=== PATIENT | female | born 1955 | race Caucasian/White ===

== ENCOUNTER → 2016-11-25 | Outpatient (CLI) | payer MEDICAID | END | disposition home or self-care (01) | LOC: LABWHC1 16:22 | PROVIDERS: ATTEND Internal Medicine Endocrinology, Diabetes & Metabolism | DX: E03.8 Other specified hypothyroidism (principal) | CPT/HCPCS: 36415; 84443 ==

== ENCOUNTER → 2016-12-08 | Outpatient (CLI) | payer MEDICAID ==
--- NOTE | 2016-12-08 11:55 | MM ---
Reason for exam: history of breast cancer, conservation therapy. Last mammogram was performed 6 months ago. History: Patient is postmenopausal and has history of breast cancer at age 56. Family history of breast cancer in cousin at age 55. Benign US breast aspiration single RT of the right breast, November 06, 2014. Malignant u/S right breast localization of the right breast, October 17, 2011. Lumpectomy of the right breast, October 17, 2011. Malignant US RT VAD breast biopsy of the right breast, October 05, 2011. Chemotherapy, 2011. Radiation therapy of the right breast, 2011. Benign core biopsy of the left breast, 1993. Took hormonal contraceptives for 3 years beginning at age 19. Taking other hormone for 8 years beginning at age 48. Physical Findings: Nurse did not find any significant physical abnormalities on exam. MG Diagnostic Mammo w CAD JOSE Bilateral CC and MLO view(s) were taken. Prior study comparison: November 06, 2014, right breast MG diagnostic mammo RT wo CAD. The breast tissue is heterogeneously dense. This may lower the sensitivity of mammography. Finding: Architectural distortion in the upper quadrant, posterior position of the right breast. There is no discrete abnormality. These results were verbally communicated with the patient and result sheet given to the patient on 12/08/16. ASSESSMENT: Benign, BI-RAD 2 RECOMMENDATION: Follow-up diagnostic mammogram of both breasts in 1 year.
== END | disposition home or self-care (01) ==
LOC: RADMAMWWP 10:02
PROVIDERS: ATTEND Family Medicine
DX: R92.8 Other abnormal and inconclusive findings on diagnostic imaging of breast (principal)

== ENCOUNTER → 2017-05-26 | Outpatient (CLI) | payer BC | END | disposition home or self-care (01) | LOC: LABWHC1 15:23 | PROVIDERS: ATTEND Internal Medicine Sleep Medicine | DX: E03.8 Other specified hypothyroidism (principal) | CPT/HCPCS: 36415; 84443 ==

== ENCOUNTER → 2017-08-18 | Outpatient (CLI) | payer BC ==
[2017-08-18 09:22] LABS: Basophils % (A) 0 %; CH 31.8; Eosinophils # (A) 0.1 k/uL (0-0.7); Eosinophils % (A) 1 %; HCT 41.1 % (34.0-46.0); HDW 3.06; HGB 13.9 gm/dL (11.4-16.0); Luc # (Auto) 0.08; Luc % (Auto) 2; Lymphocytes # (A) 0.8 k/uL (1.0-4.8); Lymphocytes % (A) 16 %; MCH 30.9 pg (25.0-35.0); MCHC 33.9 g/dL (31.0-37.0); MCV 91.2 fL (80.0-100.0); Mean Platelet Volume 7.5; Monocytes # (A) 0.2 k/uL (0-1.0); Monocytes % (A) 5 %; Neutrophils # (A) 3.8 k/uL (1.3-7.7); Neutrophils % (A) 76 %; RBC 4.51 m/uL (3.80-5.40); RDW 12.7 % (11.5-15.5); WBC 5.1 k/uL (3.8-10.6)
[2017-08-18 09:34] LABS: ALT 42 U/L (9-52); AST 28 U/L (14-36); Alkaline Phosphatase 75 U/L (38-126); Anion Gap 10 mmol/L; Blood Urea Nitrogen 17 mg/dL (7-17); Calcium 9.6 mg/dL (8.4-10.2); Carbon Dioxide 25 mmol/L (22-30); Chloride 109 mmol/L (98-107); Cholesterol 192 mg/dL (<200); Glucose 107 mg/dL (74-99); HDL Cholesterol 50 mg/dL (40-60); Non-African American GFR(MDRD) >60 (>60 ml/min/1.73 sqM); Potassium 4.7 mmol/L (3.5-5.1); Sodium 144 mmol/L (137-145); Total Bilirubin 0.3 mg/dL (0.2-1.3); Total Protein 7.6 g/dL (6.3-8.2)
== END | disposition home or self-care (01) ==
LOC: LABWHC1 08:30
PROVIDERS: ATTEND Family Medicine
DX: E03.9 Hypothyroidism, unspecified (principal)
CPT/HCPCS: 36415; 80053; 80061; 84443; 85025

== ENCOUNTER → 2017-11-27 | Outpatient (CLI) | payer BC | END | disposition home or self-care (01) | LOC: LABWHC1 10:31 | PROVIDERS: ATTEND Internal Medicine Endocrinology, Diabetes & Metabolism | DX: E03.8 Other specified hypothyroidism (principal) | CPT/HCPCS: 36415; 84443 ==

== ENCOUNTER → 2017-12-26 | Outpatient (CLI) | payer BC ==
--- NOTE | 2017-12-26 11:33 | MM ---
Reason for exam: additional evaluation requested from prior study. Last mammogram was performed 1 year and 1 month ago. History: Patient is postmenopausal and has history of breast cancer at age 56. Family history of breast cancer in cousin at age 55. Benign US breast aspiration single RT of the right breast, November 06, 2014. Malignant u/S right breast localization of the right breast, October 17, 2011. Lumpectomy of the right breast, October 17, 2011. Malignant US RT VAD breast biopsy of the right breast, October 05, 2011. Chemotherapy, 2011. Radiation therapy of the right breast, 2011. Benign core biopsy of the left breast, 1993. Took hormonal contraceptives for 3 years beginning at age 19. Taking other hormone for 8 years beginning at age 48. Physical Findings: Nurse did not find any significant physical abnormalities on exam. MG Diagnostic Mammo w CAD JOSE Bilateral CC and MLO view(s) were taken. Prior study comparison: December 08, 2016, bilateral MG diagnostic mammo w CAD JOSE. May 30, 2016, left breast MG 3d diag mammo w/cad LT. The breast tissue is heterogeneously dense. This may lower the sensitivity of mammography. Previous mammotome biopsy in the right breast. Right posterior lateral asymmetric density was present in 2014 but is slightly more defined. On spot views, this disperses. Post surgical and post therapy changes right breast. Otherwise, no significant change. These results were verbally communicated with the patient and result sheet given to the patient on 12/26/17. ASSESSMENT: Benign, BI-RAD 2 RECOMMENDATION: Follow-up diagnostic mammogram of both breasts in 1 year.
== END | disposition home or self-care (01) ==
LOC: RADMAMWWP 10:13
PROVIDERS: ATTEND Family Medicine
DX: Z08 Encounter for follow-up examination after completed treatment for malignant neoplasm (principal); Z85.3 Personal history of malignant neoplasm of breast
CPT/HCPCS: 77066

== ENCOUNTER → 2018-08-10 | Outpatient (CLI) | payer BC | END | disposition home or self-care (01) | LOC: LABWHC1 16:12 | PROVIDERS: ATTEND Internal Medicine Endocrinology, Diabetes & Metabolism | DX: E03.8 Other specified hypothyroidism (principal) | CPT/HCPCS: 36415; 84443 ==

== ENCOUNTER → 2018-08-31 | Outpatient (CLI) | payer BC ==
[2018-08-31 09:22] LABS: Basophils % (A) 0 %; Eosinophils # (A) 0.1 k/uL (0-0.7); Eosinophils % (A) 2 %; HCT 40.2 % (34.0-46.0); HGB 13.5 gm/dL (11.4-16.0); Lymphocytes # (A) 0.9 k/uL (1.0-4.8); Lymphocytes % (A) 20 %; MCH 30.8 pg (25.0-35.0); MCHC 33.6 g/dL (31.0-37.0); MCV 91.8 fL (80.0-100.0); Mean Platelet Volume 7.1; Monocytes # (A) 0.3 k/uL (0-1.0); Monocytes % (A) 6 %; Neutrophils # (A) 3.1 k/uL (1.3-7.7); Neutrophils % (A) 70 %; RBC 4.38 m/uL (3.80-5.40); RDW 12.7 % (11.5-15.5); WBC 4.4 k/uL (3.8-10.6)
[2018-08-31 11:51] LABS: Platelet Count 92 k/uL (150-450)
[2018-08-31 16:47] LABS: Vitamin D 25 Hydroxy 19.9 ng/mL (30.0-100.0)
[2018-08-31 16:52] LABS: Albumin 4.6 g/dL (3.80-4.90); Albumin/Globulin Ratio 2.42 (1.20-2.10); Anion Gap 6.6 mmol/L (4.00-12.00); Calcium 9.3 mg/dL (8.7-10.3); Carbon Dioxide 27.4 mmol/L (21.6-31.8); Globulin 1.9 g/dL (2.1-3.7); LDL Cholesterol,Calculated 115.8 mg/dL (0.0-131.0); Potassium 4.4 mmol/L (3.5-5.5); Total Bilirubin 0.5 mg/dL (0.3-1.2); Total Protein 6.5 g/dL (6.2-8.2); VLDL Calculation 25.2 mg/dL (5.00-40.00)
[2018-08-31 18:19] LABS: Hepatitis C IgG Antibody Non-Reactive (Non-Reactive)
== END | disposition home or self-care (01) ==
LOC: LABWHC1 08:23
PROVIDERS: ATTEND Family Medicine
DX: Z00.00 Encounter for general adult medical examination without abnormal findings (principal); E03.9 Hypothyroidism, unspecified; E55.9 Vitamin D deficiency, unspecified; Z11.59 Encounter for screening for other viral diseases
CPT/HCPCS: 36415; 80053; 80061; 82306; 84443; 85025; 86803

== ENCOUNTER → 2018-10-02 | Outpatient (CLI) | payer BC | END | disposition home or self-care (01) | LOC: LABWHC1 13:30 | PROVIDERS: ATTEND Internal Medicine Endocrinology, Diabetes & Metabolism | DX: E03.8 Other specified hypothyroidism (principal) | CPT/HCPCS: 36415; 84443 ==

== ENCOUNTER → 2019-01-16 | Outpatient (CLI) | payer BC ==
--- NOTE | 2019-01-16 11:10 | MM ---
Reason for exam: additional evaluation requested from prior study. Last mammogram was performed 1 year and 1 month ago. History: Patient is postmenopausal and has history of breast cancer at age 56. Family history of breast cancer in cousin at age 55. Benign US breast aspiration single RT of the right breast, November 06, 2014. Malignant u/S right breast localization of the right breast, October 17, 2011. Lumpectomy of the right breast, October 17, 2011. Malignant US RT VAD breast biopsy of the right breast, October 05, 2011. Chemotherapy, 2011. Radiation therapy of the right breast, 2011. Benign core biopsy of the left breast, 1993. Took hormonal contraceptives for 3 years beginning at age 19. Taking other hormone for 8 years beginning at age 48. Physical Findings: Nurse did not find any significant physical abnormalities on exam. MG Diagnostic Mammo w CAD JOSE Bilateral CC and MLO view(s) were taken. Prior study comparison: December 26, 2017, bilateral MG diagnostic mammo w CAD JOSE. December 08, 2016, bilateral MG diagnostic mammo w CAD JOSE. The breast tissue is heterogeneously dense. This may lower the sensitivity of mammography. Stable benign calcifications. Stable post operative changes of lumpectomy in the right breast. No significant new findings when compared with previous films. These results were verbally communicated with the patient and result sheet given to the patient on 01/16/19. ASSESSMENT: Benign, BI-RAD 2 RECOMMENDATION: Follow-up diagnostic mammogram of both breasts in 1 year.
== END | disposition home or self-care (01) ==
LOC: RADMAMWWP 10:21
PROVIDERS: ATTEND Family Medicine
DX: Z08 Encounter for follow-up examination after completed treatment for malignant neoplasm (principal); Z85.3 Personal history of malignant neoplasm of breast
CPT/HCPCS: 77066

== ENCOUNTER → 2019-02-20 | Outpatient (CLI) | payer BC | END | disposition home or self-care (01) | LOC: LABWHC1 10:13 | PROVIDERS: ATTEND Internal Medicine Endocrinology, Diabetes & Metabolism | DX: E03.8 Other specified hypothyroidism (principal) | CPT/HCPCS: 36415; 84443 ==

== ENCOUNTER → 2019-08-19 | Outpatient (CLI) | payer BC | END | disposition home or self-care (01) | LOC: LABWHC1 11:24 | PROVIDERS: ATTEND Internal Medicine Endocrinology, Diabetes & Metabolism | DX: E03.9 Hypothyroidism, unspecified (principal) | CPT/HCPCS: 36415; 84443 ==

== ENCOUNTER → 2019-09-17 | Outpatient (CLI) | payer BC ==
[2019-09-17 10:13] LABS: Basophils % (A) 1 %; Eosinophils % (A) 1 %; HCT 42.9 % (34.0-46.0); HGB 14.1 gm/dL (11.4-16.0); Lymphocytes % (A) 21 %; MCH 30.1 pg (25.0-35.0); MCHC 32.8 g/dL (31.0-37.0); MCV 91.5 fL (80.0-100.0); Mean Platelet Volume 7.5; Monocytes # (A) 0.3 k/uL (0-1.0); Monocytes % (A) 6 %; Neutrophils # (A) 3.2 k/uL (1.3-7.7); Neutrophils % (A) 70 %; Platelet Count 106 k/uL (150-450); RBC 4.69 m/uL (3.80-5.40); RDW 12.6 % (11.5-15.5); WBC 4.5 k/uL (3.8-10.6)
[2019-09-17 16:58] LABS: African American GFR (CKD) 106.9 (60.0-200.0); Albumin 4.8 g/dL (3.80-4.90); Albumin/Globulin Ratio 2.4 (1.60-3.17); Anion Gap 10.9 mmol/L (4.00-12.00); BUN/Creat Ratio 21.43 Ratio (12.00-20.00); Calcium 9.5 mg/dL (8.7-10.3); Carbon Dioxide 26.1 mmol/L (21.6-31.8); Chol/HDL Ratio 3.8; LDL Cholesterol,Calculated 123.6 mg/dL (0.0-131.0); Non-African American GFR(CKD) 92.2 (60.0-200.0); Potassium 4.4 mmol/L (3.5-5.5); Total Bilirubin 0.5 mg/dL (0.2-1.2); Total Protein 6.8 g/dL (6.2-8.2); VLDL Calculation 27.4 mg/dL (5.00-40.00)
== END | disposition home or self-care (01) ==
LOC: LABWHC1 09:14
PROVIDERS: ATTEND Family Medicine
DX: Z01.419 Encounter for gynecological examination (general) (routine) without abnormal findings (principal); E55.9 Vitamin D deficiency, unspecified; E03.9 Hypothyroidism, unspecified; Z12.4 Encounter for screening for malignant neoplasm of cervix
CPT/HCPCS: 36415; 80053; 80061; 82306; 84443; 85025

== ENCOUNTER → 2020-02-24 | Outpatient (CLI) | payer MEDICAID | END | disposition home or self-care (01) | LOC: LABWHC1 10:38 | PROVIDERS: ATTEND Internal Medicine Endocrinology, Diabetes & Metabolism | DX: E03.8 Other specified hypothyroidism (principal) | CPT/HCPCS: 36415; 84443 ==

== ENCOUNTER → 2020-04-07 | Outpatient (CLI) | payer MEDICAID ==
--- NOTE | 2020-04-07 10:40 | MM ---
Reason for exam: additional evaluation requested from prior study. Last mammogram was performed 1 year and 3 months ago. History: Patient is postmenopausal and has history of breast cancer at age 56. Family history of breast cancer in cousin at age 55. Benign US breast aspiration single RT of the right breast, November 06, 2014. Malignant u/S right breast localization of the right breast, October 17, 2011. Lumpectomy of the right breast, October 17, 2011. Malignant US RT VAD breast biopsy of the right breast, October 05, 2011. Chemotherapy, 2011. Radiation therapy of the right breast, 2011. Benign core biopsy of the left breast, 1993. Took hormonal contraceptives for 3 years beginning at age 19. Taking other hormone for 8 years beginning at age 48. Physical Findings: Nurse did not find any significant physical abnormalities on exam. MG 3D Diag Mammo W/Cad JOSE Bilateral CC and MLO view(s) were taken. Prior study comparison: January 16, 2019, bilateral MG diagnostic mammo w CAD JOSE. December 26, 2017, bilateral MG diagnostic mammo w CAD JOSE. The breast tissue is heterogeneously dense. This may lower the sensitivity of mammography. Previous mammotome biopsy in the right breast. Post surgical changes right breast. These results were verbally communicated with the patient and result sheet given to the patient on 04/07/20. ASSESSMENT: Benign, BI-RAD 2 RECOMMENDATION: Follow-up diagnostic mammogram of both breasts in 1 year.
== END | disposition home or self-care (01) ==
LOC: RADMAMWWP 09:09
PROVIDERS: ATTEND Family Medicine
DX: R92.8 Other abnormal and inconclusive findings on diagnostic imaging of breast (principal)
CPT/HCPCS: 77062; 77066

== ENCOUNTER → 2020-08-25 | Outpatient (CLI) | payer MEDICAID ==
[2020-08-25 10:27] LABS: Basophils % (A) 0 %; Eosinophils % (A) 1 %; HGB 14.5 gm/dL (11.4-16.0); Lymphocytes # (A) 1.2 k/uL (1.0-4.8); Lymphocytes % (A) 24 %; MCH 31.2 pg (25.0-35.0); MCHC 33.8 g/dL (31.0-37.0); MCV 92.1 fL (80.0-100.0); Mean Platelet Volume 7.6; Monocytes # (A) 0.2 k/uL (0-1.0); Monocytes % (A) 5 %; Neutrophils # (A) 3.4 k/uL (1.3-7.7); Neutrophils % (A) 68 %; Platelet Count 105 k/uL (150-450); RBC 4.66 m/uL (3.80-5.40); RDW 12.3 % (11.5-15.5)
[2020-08-25 14:17] LABS: African American GFR (CKD) 106.1 (60.0-200.0); Albumin 4.9 g/dL (3.80-4.90); Albumin/Globulin Ratio 2.33 (1.60-3.17); Anion Gap 9.1 mmol/L (4.00-12.00); BUN/Creat Ratio 22.86 Ratio (12.00-20.00); Calcium 9.6 mg/dL (8.7-10.3); Carbon Dioxide 26.9 mmol/L (21.6-31.8); Chol/HDL Ratio 4.16; Globulin 2.1 g/dL (1.6-3.3); LDL Cholesterol,Calculated 133.2 mg/dL (0.0-131.0); Non-African American GFR(CKD) 91.6 (60.0-200.0); Potassium 4.2 mmol/L (3.5-5.5); Total Bilirubin 0.7 mg/dL (0.2-1.2); VLDL Calculation 27.8 mg/dL (5.00-40.00)
== END | disposition home or self-care (01) ==
LOC: LABWHC1 09:04
PROVIDERS: ATTEND Family Medicine
DX: Z00.00 Encounter for general adult medical examination without abnormal findings (principal); E55.9 Vitamin D deficiency, unspecified; E03.8 Other specified hypothyroidism
CPT/HCPCS: 36415; 80053; 80061; 82306; 84443; 85025

== ENCOUNTER → 2021-02-26 | Outpatient (CLI) | payer MEDICAID | END | disposition home or self-care (01) | LOC: LABWHC1 10:08 | PROVIDERS: ATTEND Internal Medicine Endocrinology, Diabetes & Metabolism | DX: E03.8 Other specified hypothyroidism (principal) | CPT/HCPCS: 36415; 84443 ==

== ENCOUNTER → 2021-04-16 | Outpatient (CLI) | payer MEDICAID ==
--- NOTE | 2021-04-19 09:45 | MM ---
Reason for exam: additional evaluation requested from prior study. Last mammogram was performed 1 year ago. History: Patient is postmenopausal and has history of breast cancer at age 56. Family history of breast cancer in cousin at age 55. Benign US breast aspiration single RT of the right breast, November 06, 2014. Malignant u/S right breast localization of the right breast, October 17, 2011. Lumpectomy of the right breast, October 17, 2011. Malignant US RT VAD breast biopsy of the right breast, October 05, 2011. Chemotherapy, 2011. Radiation therapy of the right breast, 2011. Benign core biopsy of the left breast, 1993. Took hormonal contraceptives for 3 years beginning at age 19. Taking other hormone for 8 years beginning at age 48. Physical Findings: Nurse did not find any significant physical abnormalities on exam. MG 3D Diag Mammo W/Cad JOSE Bilateral CC and MLO view(s) were taken. XCCL view(s) were taken of the right breast. Prior study comparison: April 07, 2020, bilateral MG 3d diag mammo w/cad JOSE. January 16, 2019, bilateral MG diagnostic mammo w CAD JOSE. The breast tissue is heterogeneously dense. This may lower the sensitivity of mammography. Stable benign calcifications. Stable post operative lumpectomy changes right breast. No significant new findings when compared with previous films. These results were verbally communicated with the patient and result sheet given to the patient on 04/16/21. ASSESSMENT: Benign, BI-RAD 2 RECOMMENDATION: Follow-up diagnostic mammogram of both breasts in 1 year.
== END | disposition home or self-care (01) ==
LOC: RADMAMWWP 10:56
PROVIDERS: ATTEND Family Medicine
DX: R92.2 Inconclusive mammogram (principal); R92.1 Mammographic calcification found on diagnostic imaging of breast; Z78.0 Asymptomatic menopausal state; Z80.3 Family history of malignant neoplasm of breast; Z85.3 Personal history of malignant neoplasm of breast
CPT/HCPCS: 77062; 77066

== ENCOUNTER → 2021-08-27 | Outpatient (CLI) | payer MEDICARE | END | disposition home or self-care (01) | LOC: LABWHC1 11:54 | PROVIDERS: ATTEND Internal Medicine Endocrinology, Diabetes & Metabolism | DX: E03.8 Other specified hypothyroidism (principal) | CPT/HCPCS: 36415; 84443 ==

== ENCOUNTER → 2022-05-31 | Outpatient (CLI) | payer MEDICARE | END | disposition home or self-care (01) | LOC: LABWHC1 16:42 | PROVIDERS: ATTEND Internal Medicine Endocrinology, Diabetes & Metabolism | DX: E03.8 Other specified hypothyroidism (principal) | CPT/HCPCS: 36415; 84443 ==

== ENCOUNTER → 2022-06-07 | Outpatient (CLI) | payer MEDICARE ==
--- NOTE | 2022-06-07 11:30 | MM ---
Reason for Exam: Additional evaluation requested from prior study. Last mammogram was performed 1 year(s) and 2 month(s) ago. Patient History: Menarche at age 15. First Full-Term at age 24. Postmenopausal. Breast cancer, age 56. Hormonal Contraceptives for 3 years from age 19 until age 22. 1993, Benign Core Biopsy on the left side. 10/17/2011, Lumpectomy on the Right side. 11/06/2014, Benign Cyst Aspiration on the right side. 10/17/2011, Malignant Excisional Biopsy on the right side. 10/05/2011, Malignant Core Biopsy on the right side. 2011, Chemotherapy. 2011, Radiation Therapy on the right side. Maternal cousin had breast cancer, age 55. Tissue Density: There are scattered fibroglandular densities. Findings: Analyzed By CAD. Post biopsy changes the right breast. Scattered benign calcifications. No new suspicious masses distortions or calcifications. Overall Assessment: Benign, BI-RAD 2 Management: Screening Mammogram of both breasts in 1 year. A clinical breast exam by your physician is recommended on an annual basis and results should be correlated with mammographic findings. This exam should not preclude additional follow-up of suspicious palpable abnormalities. Results were given to the patient verbally at the time of exam. Electronically signed and approved by: Lobo Paulino DO
== END | disposition home or self-care (01) ==
LOC: RADMAMWWP 10:44
PROVIDERS: ATTEND Family Medicine
DX: R92.1 Mammographic calcification found on diagnostic imaging of breast (principal); Z78.0 Asymptomatic menopausal state
CPT/HCPCS: 77066; G0279; 77062

== ENCOUNTER → 2022-12-19 | Outpatient (CLI) | payer MEDICARE ==
[2022-12-20 06:14] LABS: T4, Free (Free Thyroxine) 1.57 ng/dL (0.800-1.800)
== END | disposition home or self-care (01) ==
LOC: LABWHC1 14:18
PROVIDERS: ATTEND Internal Medicine Endocrinology, Diabetes & Metabolism
DX: E03.8 Other specified hypothyroidism (principal)
CPT/HCPCS: 36415; 84439; 84443; 84445; 84480

== ENCOUNTER → 2022-12-29 | Outpatient (CLI) | payer MEDICARE ==
[2022-12-30 00:38] LABS: T4, Free (Free Thyroxine) 1.82 ng/dL (0.800-1.800)
[2022-12-30 00:57] LABS: Thyroid Peroxidase Antibodies 41.2 U/mL (0.0-33.0)
== END | disposition home or self-care (01) ==
LOC: LABWHC1 14:48
PROVIDERS: ATTEND Internal Medicine Endocrinology, Diabetes & Metabolism
DX: E03.8 Other specified hypothyroidism (principal)
CPT/HCPCS: 36415; 82533; 84439; 84443; 84445; 84480; 86376; 86800

== ENCOUNTER → 2023-01-06 | Outpatient (CLI) | payer MEDICARE | LOC: NEUROMAIN 09:08 | PROVIDERS: ATTEND Family Medicine | DX: F44.5 Conversion disorder with seizures or convulsions (principal); Z88.0 Allergy status to penicillin; Z87.891 Personal history of nicotine dependence | CPT/HCPCS: 95816 ==

== ENCOUNTER → 2023-02-08 | Outpatient (CLI) | payer MEDICARE ==
[2023-02-08 15:40] LABS: Thyroid Peroxidase Antibodies 16.9 U/mL (0.0-33.0)
[2023-02-08 15:52] LABS: T4, Free (Free Thyroxine) 1.35 ng/dL (0.800-1.800)
== END | disposition home or self-care (01) ==
LOC: LABWHC1 08:53
PROVIDERS: ATTEND Family Medicine
DX: R94.6 Abnormal results of thyroid function studies (principal)
CPT/HCPCS: 36415; 84432; 84439; 84443; 84481; 86376

== ENCOUNTER 2023-03-13 14:06 | Inpatient (IN) | payer MEDICARE ==
--- NOTE | 2023-03-13 15:19 | ED ---
General Adult HPI - General Source: patient Mode of arrival: ambulatory Limitations: no limitations <Alek Santana - Last Filed: 03/13/23 16:03> <Yusef Damon - Last Filed: 03/13/23 23:28> - General Chief complaint: Psychiatric Symptoms Stated complaint: Anxiety Time Seen by Provider: 03/13/23 14:38 - History of Present Illness Initial comments: Dictation was produced using [employer] dictation software. please excuse any grammatical, word or spelling errors. Chief Complaint: 67-year-old female presents with anxiety History of Present Illness: To 67-year-old female presents emergency department for anxiety. She has had self-harm behavior. She is scratching her forearms vigorously with a scarring dad. States that she does not feel her anxiety is being managed appropriately on an outpatient basis. She currently takes Ativan. States that she does not feel well controlled with Zoloft. Denies any medical complaints. She reports having had extensive workup recently by primary care doctor for her tremors. The ROS documented in this emergency department record has been reviewed and confirmed by me. Those systems with pertinent positive or negative responses have been documented in the HPI. All other systems are other negative and/or noncontributory. (Alek Santana) - Related Data Home Medications Medication Instructions Recorded Confirmed Sertraline HCl 100 mg PO DAILY 07/06/15 03/13/23 Acetaminophen [Tylenol] 650 mg PO Q4H PRN 03/13/23 03/13/23 LORazepam [Ativan] 0.5 mg PO TID 03/13/23 03/13/23 Allergies Allergy/AdvReac Type Severity Reaction Status Date / Time Penicillins Allergy Unknown Verified 03/13/23 16:53 Childhood propranolol AdvReac Nausea & Verified 03/13/23 16:57 Vomiting/Dizziness/Decreased BP Review of Systems ROS Other: All systems not noted in ROS Statement are negative. <Alek Santana - Last Filed: 03/13/23 16:03> ROS Other: All systems not noted in ROS Statement are negative. <Yusef Damon - Last Filed: 03/13/23 23:28> ROS Statement: Those systems with pertinent positive or pertinent negative responses have been documented in the HPI. Past Medical History Past Medical History: Cancer, Musculoskeletal Disorder, Osteoarthritis (OA), Thyroid Disorder Additional Past Medical History / Comment(s): RT BREAST CA 09/2011, HAD SX,CHEMO, RADIATION, hypothyroidism, VARICOSE VEINS bilaterally, nephrolithiasis with sx, OA R knee History of Any Multi-Drug Resistant Organisms: None Reported Past Surgical History: Breast Surgery, Hernia Repair, Orthopedic Surgery Additional Past Surgical History / Comment(s): L ING HERNIA repair, RT KNEE injection/SCOPE, RT BREAST LUMPECTOMY, lithotripsy, colonoscopy, L breast benign bx. Past Anesthesia/Blood Transfusion Reactions: No Reported Reaction Past Psychological History: Anxiety, Depression Smoking Status: Never smoker Past Alcohol Use History: Occasional Past Drug Use History: None Reported - Past Family History Mother Family Medical History: Hypertension, Renal Disease, Rheumatoid Arthritis (RA) Additional Family Medical History / Comment(s): Mother is 87 yrs old. Daughter(s) Family Medical History: Cancer Additional Family Medical History / Comment(s): retinal blastoma Father Daughter(s) Family Medical History: Cancer, Pneumonia Additional Family Medical History / Comment(s): Father had prostate cancer and of pneumonia at the ate of 83 yrs. <Alek Santana - Last Filed: 03/13/23 16:03> General Exam Limitations: no limitations <Alek Santana - Last Filed: 03/13/23 16:03> - General Exam Comments Initial Comments: PHYSICAL EXAM: General Impression: Alert and oriented x3, not in acute distress HEENT: Normocephalic atraumatic, extra-ocular movements intact, pupils equal and reactive to light bilaterally, mucous membranes moist. Cardiovascular: Heart regular rate and rhythm Chest: Able to complete full sentences, no retractions, no tachypnea Musculoskeletal: Pulses present and equal in all extremities, no peripheral edema Motor: no focal deficits noted Neurological: CN II-XII grossly intact, no focal motor or sensory deficits noted Skin: Intact with no visualized rashes Psych: Anxious (Alek Santana) Course Vital Signs 03/13/23 03/13/23 03/13/23 14:08 16:52 21:00 Temperature 97.4 F L Pulse Rate 114 H 99 68 Respiratory 20 20 20 Rate Blood Pressure 136/72 160/90 160/90 O2 Sat by Pulse 98 98 98 Oximetry 03/13/23 22:00 Temperature Pulse Rate 65 Respiratory 16 Rate Blood Pressure 107/60 O2 Sat by Pulse 95 Oximetry Medical Decision Making <Alek Santana - Last Filed: 03/13/23 16:03> <Yusef Damon - Last Filed: 03/13/23 23:28> - Medical Decision Making Was pt. sent in by a medical professional or institution (, PA, WOOL BUYER, urgent care, hospital, or long-term...) When possible be specific @ -No Did you speak to anyone other than the patient for history (EMS, parent, family, police, friend...)? What history was obtained from this source @ -No Did you review nursing and triage notes (agree or disagree)? Why? @ -I reviewed and agree with nursing and triage notes Were old charts reviewed (outside hosp., previous admission, EMS record, old EKG, old radiological studies, urgent care reports/EKG's, long-term records)? Report findings @ -No old charts were reviewed Differential Diagnosis (chest pain, altered mental status, abdominal pain women, abdominal pain men, vaginal bleeding, musculoskeletal, weakness, fever, dyspnea, syncope, headache, dizziness, GI bleed, back pain, seizure, CVA, pa lpatations, mental health)? @ -Differential Mental Health: Depression, anxiety, bipolar, psychosis, schizophrenia, borderline personality, situational depression, adjustment disorder, behavioral disorder, brain tumor, malingering, substance abuse, encephalopathy, medication reaction, dementia, hypothyroidism, degenerative neurologic disorder, lupus.... This is not meant to be all-inclusive list EKG interpreted by me (3pts min.). @ -None done X-rays interpreted by me (1pt min.). @ -None done CT interpreted by me (1pt min.). @ -None done U/S interpreted by me (1pt. min.). @ -None done What testing was considered but not performed or refused? (CT, X-rays, U/S, labs)? Why? @ -None What meds were considered but not given or refused? Why? @ -None Did you discuss the management of the patient with other professionals (professionals i.e. , ODAL[employer], WOOL BUYER, lab, RT, psych nurse, social secretary, maintenance mechanic, teacher, special technical operations officer, rehabilitation case coordinator)? Give summary @ -No Was smoking cessation discussed for >3mins.? @ -No Was critical care preformed (if so, how long)? @ -No Were there social determinants of health that impacted care today? How? (Homelessness, low income, unemployed, alcoholism, drug addiction, transportation, low edu. Level, literacy, decrease access to med. care, senior care, rehab)? @ -No Was there de-escalation of care discussed even if they declined (Discuss DNR or withdrawal of care, Hospice)? DNR status @ -No What co-morbidities impacted this encounter? (DM, HTN, Smoking, COPD, CAD, Cancer, CVA, ARF, Chemo, Hep., AIDS, mental health diagnosis, sleep apnea, morbid obesity)? @ -None Was patient admitted / discharged? Hospital course, mention meds given and route, prescriptions, significant lab abnormalities, going to OR and other pertinent info. @ -67-year-old female presents emergency department for anxiety. Vital signs upon arrival are within acceptable limits. Patient mildly anxious at the bedside. She has been displaying self harming behavior. Denies any homicidal ideation. Patient care is signed out to oncoming physician for follow-up of pending EPS recommendations Undiagnosed new problem with uncertain prognosis? @ -No Drug Therapy requiring intensive monitoring for toxicity (Heparin, Nitro, I nsulin, Cardizem)? @ -No Were any procedures done? @ -No Diagnosis/symptom? Acute, or Chronic, or Acute on Chronic? Uncomplicated (without systemic symptoms) or Complicated (systemic symptoms)? @ -1. Anxiety with self harming behavior Poses a threat to life or bodily function? How? (Chest pain, [place], CO, pneumonia, PE, COPD, DKA, ARF, appy, cholecystitis, CVA, Diverticulitis, Homicidal, Suicidal, threat to staff... and all critical care pts) @ -yes (Alek Santana) Patient signed out to me pending results of EPS evaluation by psychiatry. Determined that the patient does meet inpatient criteria. Patient will be admitted to inpatient psychiatry in stable condition. (Yusef Damon) - Lab Data Lab Results 03/13/23 Range/Units 22:14 Coronavirus (PCR) Not Detected (Not Detectd) Disposition <Alek Santana - Last Filed: 03/13/23 16:03> <Yusef Damon - Last Filed: 03/13/23 23:28> Clinical Impression: Encounter for psychological evaluation, Self-harm, Acute anxiety Disposition: ADMITTED IP TO THIS [facility] Condition: Stable Referrals: Padmini Peterson MD [Primary Care Provider] - 1-2 days
[2023-03-13] MEDS ORDERED: LORazepam 1 MG TAB PO STA (17:41)
[2023-03-13] MEDS ORDERED: ACETAMINOPHEN TAB 500 MG TAB PO STA (19:21)
[2023-03-14] MEDS ORDERED: MAGNESIUM HYDROXIDE 2,400 MG/30 ML CUP PO PRN (00:13)
[2023-03-14] MEDS ORDERED: LORazepam 2 MG/ML INJ IM PRN (00:19)
[2023-03-14] MEDS: LORazepam 1 MG TAB PO PRN ×3 (01:07→13:27)
[2023-03-14] MEDS: ACETAMINOPHEN TAB 325 MG TAB PO PRN (03:24)
[2023-03-14 07:52] LABS: Basophils % (A) 0 %; Eosinophils % (A) 0 %; HCT 44.1 % (34.0-46.0); HGB 14.9 gm/dL (11.4-16.0); Lymphocytes # (A) 0.9 k/uL (1.0-4.8); Lymphocytes % (A) 16 %; MCH 32.2 pg (25.0-35.0); MCHC 33.7 g/dL (31.0-37.0); MCV 95.4 fL (80.0-100.0); Mean Platelet Volume 8.2; Monocytes # (A) 0.4 k/uL (0-1.0); Monocytes % (A) 7 %; Neutrophils # (A) 4.3 k/uL (1.3-7.7); Neutrophils % (A) 75 %; Platelet Count 122 k/uL (150-450); RBC 4.62 m/uL (3.80-5.40); RDW 12.5 % (11.5-15.5); WBC 5.7 k/uL (3.8-10.6)
[2023-03-14 08:08] LABS: ALT 19 U/L (4-34); AST 20 U/L (14-36); African American GFR (CKD) >90 (>60 ml/min/1.73 sqM); Albumin 4.4 g/dL (3.5-5.0); Alkaline Phosphatase 73 U/L (38-126); Anion Gap 8 mmol/L; Bilirubin, Delta 0.1 mg/dL (0.0-0.2); Bilirubin,Unconjugated 0.6 mg/dL (0.0-1.1); Blood Urea Nitrogen 15 mg/dL (7-17); Calcium 9.3 mg/dL (8.4-10.2); Carbon Dioxide 25 mmol/L (22-30); Chloride 102 mmol/L (98-107); Glucose 96 mg/dL (74-99); Non-African American GFR(CKD) >90 (>60 ml/min/1.73 sqM); Potassium 4.4 mmol/L (3.5-5.1); Sodium 135 mmol/L (137-145); Total Bilirubin 0.7 mg/dL (0.2-1.3)
[2023-03-14] MEDS ORDERED: SERTRALINE 100 MG TAB PO SCH (09:00)
--- NOTE | 2023-03-14 13:03 | P.HP ---
Psychiatric H&P - . H&P Date: 03/14/23 History & Physical: Allergies Allergy/AdvReac Type Severity Reaction Status Date / Time Penicillins Allergy Unknown Verified 03/13/23 16:53 Childhood propranolol AdvReac Nausea & Verified 03/13/23 16:57 Vomiting/Dizziness/Decreased BP Vital Signs Temp 96.4 F L 03/14/23 01:47 Pulse 95 03/14/23 01:47 Resp 20 03/14/23 01:47 BP 135/90 03/14/23 01:47 Pulse Ox 98 03/14/23 01:47 FiO2 Intake & Output 03/13/23 03/14/23 03/14/23 18:59 06:59 18:59 Weight 58.967 kg 56.8 kg Laboratory Last Values WBC 5.7 k/uL (3.8-10.6) 03/14/23 07:26 RBC 4.62 m/uL (3.80-5.40) 03/14/23 07:26 Hgb 14.9 gm/dL (11.4-16.0) 03/14/23 07:26 Hct 44.1 % (34.0-46.0) 03/14/23 07:26 MCV 95.4 fL (80.0-100.0) 03/14/23 07:26 MCH 32.2 pg (25.0-35.0) 03/14/23 07:26 MCHC 33.7 g/dL (31.0-37.0) 03/14/23 07:26 RDW 12.5 % (11.5-15.5) 03/14/23 07:26 Plt Count 122 k/uL (150-450) L 03/14/23 07:26 MPV 8.2 03/14/23 07:26 Neutrophils % 75 % 03/14/23 07:26 Lymphocytes % 16 % 03/14/23 07:26 Monocytes % 7 % 03/14/23 07:26 Eosinophils % 0 % 03/14/23 07:26 Basophils % 0 % 03/14/23 07:26 Neutrophils # 4.3 k/uL (1.3-7.7) 03/14/23 07:26 Lymphocytes # 0.9 k/uL (1.0-4.8) L 03/14/23 07:26 Monocytes # 0.4 k/uL (0-1.0) 03/14/23 07:26 Eosinophils # 0.0 k/uL (0-0.7) 03/14/23 07:26 Basophils # 0.0 k/uL (0-0.2) 03/14/23 07:26 Sodium 135 mmol/L (137-145) L 03/14/23 07:26 Potassium 4.4 mmol/L (3.5-5.1) 03/14/23 07:26 Chloride 102 mmol/L (98-107) 03/14/23 07:26 Carbon Dioxide 25 mmol/L (22-30) 03/14/23 07:26 Anion Gap 8 mmol/L 03/14/23 07:26 BUN 15 mg/dL (7-17) 03/14/23 07:26 Creatinine 0.62 mg/dL (0.52-1.04) 03/14/23 07:26 Est GFR (CKD-EPI)AfAm >90 (>60 ml/min/1.73 sqM) 03/14/23 07:26 Est GFR (CKD-EPI)NonAf >90 (>60 ml/min/1.73 sqM) 03/14/23 07:26 Glucose 96 mg/dL (74-99) 03/14/23 07:26 Calcium 9.3 mg/dL (8.4-10.2) 03/14/23 07:26 Total Bilirubin 0.7 mg/dL (0.2-1.3) 03/14/23 07:26 Conjugated Bilirubin 0.0 mg/dL (0.0-0.3) 03/14/23 07:26 Unconjugated Bilirubin 0.6 mg/dL (0.0-1.1) 03/14/23 07:26 Delta Bilirubin 0.1 mg/dL (0.0-0.2) 03/14/23 07:26 AST 20 U/L (14-36) 03/14/23 07:26 ALT 19 U/L (4-34) 03/14/23 07:26 Alkaline Phosphatase 73 U/L (38-126) 03/14/23 07:26 Total Protein 7.0 g/dL (6.3-8.2) 03/14/23 07:26 Albumin 4.4 g/dL (3.5-5.0) 03/14/23 07:26 TSH 1.630 mIU/L (0.465-4.680) 03/14/23 07:26 Coronavirus (PCR) Not Detected (Not Detectd) 03/13/23 22:14 03/14/23 10:43 IDENTIFYING DATA: Patient is a 67-year-old female, currently lives with her in a house, she has 3 kids. HPI: Patient presented to the hospital complaining of severe anxiety, suicidal ideations depression and also scratching her arm. Patient apparently was claiming the ER that she has been taking Ativan at an increasing dose and her Zoloft has not been helping her. She was seen today and agreeable to typewriter assembler today in the office. She signed voluntary for admission. She states that her anxiety is "extreme" and states that she is also developed a tremor as well when her anxiety gets worse. States that this is been going on and progressively getting worse since October of this year. States that her sleep and appetite are poor. Claims that she went her motor tune up specialist who discontinued her Synthroid however states that she did not improve since then. She claims that her tremor is also a "body tremor" and has been aggravated by stressors. States that she also went to a neurologist who states that it's a essential tremor" and started on primidone. Claims that she did not react well with the primidone. Claims that the tremor is not when she is resting and m ainly when she is agitated and upset. States that she also saw a psychiatrist which did not help her. Claims that she was up 200 mg of Zoloft however states that it is not been helping her and has been on Zoloft Zoloft chronically. Claims that the Ativan she has been taking more and more of. Claims her mood is depressed and she was visibly crying and upset during the interview. She states that her appetite is also poor. Patient denies any current suicidal or homicidal ideations intent or plan. At this time patient denies any auditory or visual hallucinations. Patient admits to using no recreational drugs cigarettes or alcohol. PAST PSYCHIATRIC HISTORY: Patient states that she has a history of anxiety and depression. And that she was previously on Zoloft and also trazodone as well as Ativan which has been increasing her dose. She states that her last psychiatric admission was to the mental health unit 20 years ago. Claims that she follows up at [facility], [place] counseling with nurse practitioner. Patient denies any history of suicide attempts in the past. Past Medical History: Cancer, Musculoskeletal Disorder, Osteoarthritis (OA), Thyroid Disorder Additional Past Medical History / Comment(s): RT BREAST CA 09/2011, HAD SX,CHEMO, RADIATION, hypothyroidism, VARICOSE VEINS bilaterally, nephrolithiasis with sx, OA R knee History of Any Multi-Drug Resistant Organisms: None Reported Past Surgical History: Breast Surgery, Hernia Repair, Orthopedic Surgery Additional Past Surgical History / Comment(s): L ING HERNIA repair, RT KNEE injection/SCOPE, RT BREAST LUMPECTOMY, lithotripsy, colonoscopy, L breast benign bx. Past Anesthesia/Blood Transfusion Reactions: No Reported Reaction Past Psychological History: Anxiety, Depression Smoking Status: Never smoker Past Alcohol Use History: Occasional Past Drug Use History: None Reported ALLERGIES: as per EMR CHEMICAL DEPENDENCY HISTORY: as per HPI FAMILY PSYCHIATRIC/SUBSTANCE USE HISTORY: Claims that her sister has bipolar disorder SOCIAL HISTORY: Patient was born and raised in [place]. She states that she completed high school and did her associates degree. She states that she used to work for [employer] however now is now retired. States that she lives at home with her , they live in a house, they had 3 kids that are older now. Denies any legal history. MENTAL STATUS EXAM: General Appearance: Patient appears to be then, older than stated age is alert, directable, and attempts to cooperate. Fairly anxious and suspicious at times. Patient appears to have poor hygiene and grooming. Behavior: Patient is seated without any agitated behavior. Anxious and suspicious Speech: Patient's speech is fluent and nonpressured. Hesitant. Mood/Affect: Patient reports their mood is depressed and anxious, affect is congruent and tearful Suicidality/Homicidality: Patient denies having any homicidal ideation intent or plan. Denies any suicidal ideations intent or plan Perceptions: Patient denies any visual hallucinations and denies any auditory hallucinations Though content/process: There is no evidence of any delusional thought content and thought process is linear and goal-directed. Focus on her medications and her treatment. Memory and concentration: AOX3, grossly intact for the purposes of this session. Can spell "WORLD" backwards Judgment and insight: poor STRENGTHS/WEAKNESSES: strength is that patient is resilient. Weakness is that patient has severe symptoms and chronic anxiety INTELLECT: average IMPRESSIONS: Depressive disorder unspecified Generalized anxiety disorder with panic attacks Benzodiazepine use disorder PLAN: -Patient is admitted under voluntary status to MHU for stabilization of psychiatric symptoms and safety. Patient has signed adult voluntary form and medication consent and is placed in patient's chart. -Medications : Will start patient on Zyprexa 2.5 mg daily at bedtime for anxiety/mood stabilization/insomnia, discontinued Zoloft and replaced with Effexor 37.5 mg daily for mood/anxiety. Trazodone 50 mg daily at bedtime when necessary for insomnia. scheduled librium tid for etoh withdrawal with plan to taper down -Ativan and Haldol and Vistaril PRN for agitation/aggression -Patient was informed of the risks, benefits and side effects of the medication and patient verbally consented to taking the medications. Patient signed med consent form and was placed in chart. -Internal Medicine consult to perform medical evaluation and physical. -NRT - not needed as patient does not smoke. -SW on board for discharge planning. Encourage patient to participate in groups to work on coping skills. 03/14/23 12:57
[2023-03-14] MEDS: VENLAFAXINE HCL ER 37.5 MG CAP PO SCH (13:27)
--- NOTE | 2023-03-14 15:19 | P.MDCNMH ---
History of Present Illness H&P Date: 03/14/23 History of present illness; patient is 67-year-old lady with past medical history significant for anxiety, self-harm tendencies who presented to the ER because of worsening anxiety. Patient stated that she has been anxious a lot and feels like her anxiety is not being treated adequately. Patient has self- harm tendencies and is scratching her arms vigorously. Denies any auditory or visual hallucinations. Denies any homicidal thoughts. Initial lab work done showed WBC 5.7, hemoglobin 14.9, platelet, and 22, sodium 135, potassium 4.4, BUN 15 creatinine 0.62. Patient was admitted to inpatient psych for further evaluation REVIEW OF SYSTEMS: CONSTITUTIONAL: No fever, no malaise, no fatigue. Extremely anxious HEENT: No recent visual problems or hearing problems. Denied any sore throat. CARDIOVASCULAR: No chest pain, orthopnea, PND, no palpitations, no syncope. PULMONARY: No shortness of breath, no cough, no hemoptysis. GASTROINTESTINAL: No diarrhea, no nausea, no vomiting, no abdominal pain. NEUROLOGICAL: No headaches, no weakness, no numbness. HEMATOLOGICAL: Denies any bleeding or petechiae. GENITOURINARY: Denies any burning micturition, frequency, or urgency. MUSCULOSKELETAL/RHEUMATOLOGICAL: Denies any joint pain, swelling, or any muscle pain. ENDOCRINE: Denies any polyuria or polydipsia. The rest of the 14-point review of systems is negative. PHYSICAL EXAMINATION: GENERAL: The patient is alert and oriented x3, not in any acute distress. Well developed, well nourished. Anxious HEENT: Pupils are round and equally reacting to light. EOMI. No scleral icterus. No conjunctival pallor. Normocephalic, atraumatic. No pharyngeal erythema. No th yromegaly. CARDIOVASCULAR: S1 and S2 present. No murmurs, rubs, or gallops. PULMONARY: Chest is clear to auscultation, no wheezing or crackles. ABDOMEN: Soft, nontender, nondistended, normoactive bowel sounds. No palpable organomegaly. MUSCULOSKELETAL: No joint swelling or deformity. EXTREMITIES: No cyanosis, clubbing, or pedal edema. NEUROLOGICAL: Gross neurological examination did not reveal any focal deficits. SKIN: No rashes. Assessment and plan Generalized anxiety disorder Self-harm tendency Plan; Monitor vital signs Elopement precautions Bowel regimen GI prophylaxis Continue psych meds per psychiatry team Past Medical History Past Medical History: Cancer, Musculoskeletal Disorder, Osteoarthritis (OA), Thyroid Disorder Additional Past Medical History / Comment(s): RT BREAST CA 09/2011, HAD SX,CHEMO, RADIATION, hypothyroidism, VARICOSE VEINS bilaterally, nephrolithiasis with sx, OA R knee History of Any Multi-Drug Resistant Organisms: None Reported Past Surgical History: Breast Surgery, Hernia Repair, Orthopedic Surgery Additional Past Surgical History / Comment(s): L ING HERNIA repair, RT KNEE injection/SCOPE, RT BREAST LUMPECTOMY, lithotripsy, colonoscopy, L breast benign bx. Past Anesthesia/Blood Transfusion Reactions: No Reported Reaction Past Psychological History: Anxiety, Depression Additional Psychological History / Comment(s): Pt has hx of panic attacks. She had major depression 15-20 yrs ago and has been stable since. She sees Dr. Barbosa every 4 months and just saw him 1 week ago. She resides with her spouse and is independent. Pt placed her mother in a halfway this past winter and she and her are building a home in [place] which will be closer to her daughter and granddaughter Smoking Status: Never smoker Past Alcohol Use History: None Reported, Occasional Additional Past Alcohol Use History / Comment(s): Pt started smoking in 1974 and quit in 1976 Past Drug Use History: None Reported Additional Drug Use History / Comment(s): no drug or etoh history - Past Family History Mother Family Medical History: Hypertension, Renal Disease, Rheumatoid Arthritis (RA) Additional Family Medical History / Comment(s): mother is alive Daughter(s) Family Medical History: Cancer Additional Family Medical History / Comment(s): retinal blastoma Father Daughter(s) Family Medical History: Cancer, Pneumonia Additional Family Medical History / Comment(s): Father had prostate cancer and of pneumonia at the age of 83 yrs. Medications and Allergies Home Medications Medication Instructions Recorded Confirmed Type Sertraline HCl 100 mg PO DAILY 07/06/15 03/13/23 History Acetaminophen [Tylenol] 650 mg PO Q4H PRN 03/13/23 03/13/23 History LORazepam [Ativan] 0.5 mg PO TID 03/13/23 03/13/23 History Allergies Allergy/AdvReac Type Severity Reaction Status Date / Time Penicillins Allergy Unknown Verified 03/13/23 16:53 Childhood propranolol AdvReac Nausea & Verified 03/13/23 16:57 Vomiting/Dizziness/Decreased BP Physical Exam Vitals: Vital Signs Temp Pulse Pulse Resp BP BP Pulse Ox 03/14/23 01:47 96.4 F L 95 20 135/90 98 03/13/23 22:00 65 16 107/60 95 03/13/23 21:00 68 20 160/90 98 03/13/23 16:52 99 20 160/90 98 03/13/23 14:08 97.4 F L 114 H 20 136/72 98 Intake and Output 03/13/23 03/14/23 03/14/23 22:59 06:59 14:59 Other: Weight 56.8 kg Cranial Nerve Examination - Cranial Nerves Cranial Nerve II- Optic: Intact (Cranial nerves II 12 intact) Cranial Nerve III- Oculomotor: Intact Cranial Nerve IV- Trochlear: Intact Cranial Nerve V- Trigeminal: Intact Cranial Nerve - Abducens: Intact Cranial Nerve VII- Facial: Intact Cranial Nerve VIII- Auditory: Intact Cranial Nerve IX- Glossopharyngeal: Intact Cranial Nerve X- Vagus: Intact Cranial Nerve XI- Accessory: Intact Cranial Nerve XII- Hypoglossal: Intact Results CBC & Chem 7: 03/14/23 07:26 03/14/23 07:26 Labs: Abnormal Lab Results - Last 24 Hours (Table) 03/14/23 03/14/23 Range/Units 07:26 07:26 Plt Count 122 L (150-450) k/uL Lymphocytes # 0.9 L (1.0-4.8) k/uL Sodium 135 L (137-145) mmol/L
[2023-03-14 15:34] VITALS: BMI 20.8
[2023-03-14 15:51] LABS: Chol/HDL Ratio 3.48 Ratio
[2023-03-14] MEDS ORDERED: traZODone HCL 100 MG TAB PO SCH (21:00)
[2023-03-14] MEDS: OLANZapine 2.5 MG TAB PO SCH (21:17)
[2023-03-15] MEDS: VENLAFAXINE HCL ER 37.5 MG CAP PO SCH (08:57)
--- NOTE | 2023-03-15 11:27 | P.PN ---
Progress Note - Text Progress Note Date: 03/15/23 Interval History: Patient was seen and was directable and agreeable to speak with magazine writer in the office. [ Patient appears to have mildly improving hygiene and grooming today. She continues to endorse some depression and anxiety however states that it is mildly improving. Patient continues to be worried about her medications. She had her fax in the results from her pari I testing and magazine writer reviewed this and the results with her. Brick Setter informed patient several times about the limitations of this kind of testing and to put into context with what we are seeing clinically, patient was fairly focused on the category that her medications were in. We spoke about different examples and I answered all her questions as best as I could. She claims that she was able to sleep fairly well last night. States that she is trying to go to some groups and participate. Continues to be worried about her outpatient follow-up]. At this time patient denies any suicidal or homical ideations, intent or plan. Patient denies any auditory, visual hallucinations and denies any paranoia or delusions. Patient denies any side effects from the medications and has been compliant with meds. Her appetite is fair. Mental Status Exam: General Appearance: Patient appears to be then, older than stated age is alert, directable, and attempts to cooperate. Less anxious today. Patient appears to have improving hygiene and grooming. Behavior: Patient is seated without any agitated behavior. Less anxious. Speech: Patient's speech is fluent and nonpressured. Mood/Affect: Patient reports their mood is improving mildly, continues to be somewhat anxious, affect is congruent and not tearful Suicidality/Homicidality: Patient denies having any homicidal ideation intent or plan. Denies any suicidal ideations intent or plan Perceptions: Patient denies any visual hallucinations and denies any auditory hallucinations Though content/process: There is no evidence of any delusional thought content and thought process is linear and goal-directed. Focus on meds and treatment Memory and concentration: AOX3, grossly intact for the purposes of this session Judgment and insight: poor, improving mildly IMPRESSIONS: Depressive disorder unspecified Generalized anxiety disorder with panic attacks Benzodiazepine use disorder PLAN: -Patient is admitted under voluntary status to MHU for stabilization of psychiatric symptoms and safety. Patient has signed adult voluntary form and medication consent and is placed in patient's chart. -Medications: continue with Zyprexa 2.5 mg daily at bedtime for anxiety/mood stabilization/insomnia, continue Effexor 37.5 mg daily for mood/anxiety. Trazodone 50 mg daily at bedtime when necessary for insomnia. decrease librium bid for bzd withdrawal with plan to taper down further. CIWA protocol with prn ativan and continue to monitor. -Ativan and Haldol and Vistaril PRN for agitation/aggression -NRT - not needed as patient does not smoke. -SW on board for discharge planning. Encourage patient to participate in groups to work on coping skills. hopeful for discharge monday if patient continues to improve.
[2023-03-15] MEDS: ACETAMINOPHEN TAB 325 MG TAB PO PRN (14:41)
[2023-03-15] MEDS: OLANZapine 2.5 MG TAB PO SCH (22:12)
[2023-03-16] MEDS: LORazepam 1 MG TAB PO PRN (00:15)
[2023-03-16] MEDS: traZODone HCL 50 MG TAB PO PRN (01:41)
[2023-03-16] MEDS: VENLAFAXINE HCL ER 37.5 MG CAP PO SCH (08:57)
--- NOTE | 2023-03-16 10:28 | P.PN ---
Progress Note - Text Progress Note Date: 03/16/23 Interval History: Patient was seen and was directable and agreeable to speak with copywriter in the office. Patient claims that she needs to take extra medications last night to sleep and did not sleep well. She claims that she "can't get the Zoloft out of my head". She expressed a lot of indecisiveness and wanted to go back on the Zoloft instead of the Effexor. She continues to refer back to the gene sight test results. Continues to ramble at times and be preoccupied with her medications. She did not give any clear side effects of the medications at this time however did express apologies towards being indecisive about decision making. She continues to endorse some depression and anxiety however states that it is mildly improving. Patient continues to be worried about her medications. States that her appetite is fair. States that she is trying to go to some groups and participate. At this time patient denies any suicidal or homical ideations, intent or plan. Patient denies any auditory, visual hallucinations and denies any paranoia or delusions. Patient denies any side effects from the medications and has been compliant with meds. Mental Status Exam: General Appearance: Patient appears to be then, older than stated age is alert, directable, and attempts to cooperate. anxious today. Patient appears to have improving hygiene and grooming. Behavior: Patient is seated without any agitated behavior. anxious. Indecisive. Speech: Patient's speech is fluent and nonpressured. Mood/Affect: Patient reports their mood is improving mildly, continues to be anxious, affect is congruent and mildly tearful Suicidality/Homicidality: Patient denies having any homicidal ideation intent or plan. Denies any suicidal ideations intent or plan Perceptions: Patient denies any visual hallucinations and denies any auditory hallucinations Though content/process: There is no evidence of any delusional thought content and thought process is linear and goal-directed. Focus on meds and treatment, indecisive. Memory and concentration: AOX3, grossly intact for the purposes of this session Judgment and insight: poor, improving mildly IMPRESSIONS: Depressive disorder unspecified Generalized anxiety disorder with panic attacks Benzodiazepine use disorder PLAN: -Patient is admitted under voluntary status to MHU for stabilization of psychiatric symptoms and safety. Patient has signed adult voluntary form and medication consent and is placed in patient's chart. -Medications: increase Zyprexa 5 mg daily at bedtime for anxiety/mood stabilization/insomnia, discontinue Effexor due to patients request and replace with zoloft 50 mg daily for mood/anxiety, will continue titrating upwards. Trazodone 50 mg daily at bedtime when necessary for insomnia. continue librium bid for bzd withdrawal with plan to taper down further tomorrow, CIWA protocol with prn ativan and continue to monitor. -Ativan and Haldol and Vistaril PRN for agitation/aggression -NRT - not needed as patient does not smoke. -SW on board for discharge planning. Encourage patient to participate in groups to work on coping skills. likely discharge in 2-3 days due to medication switching and unstable anxiety/mood.
[2023-03-16] MEDS: SERTRALINE 50 MG TAB PO SCH (10:43)
[2023-03-16] MEDS: ACETAMINOPHEN TAB 325 MG TAB PO PRN (15:21)
[2023-03-16] MEDS: MAG HYDROX/AL HYDROX/SIMETH 30 ML CUP PO PRN (18:57)
[2023-03-16] MEDS: OLANZapine 5 MG TAB PO SCH (21:58)
[2023-03-17] MEDS: traZODone HCL 50 MG TAB PO PRN (00:51)
[2023-03-17] MEDS: SERTRALINE 50 MG TAB PO SCH (08:46)
[2023-03-17] MEDS ORDERED: LORazepam 1 MG TAB PO PRN (09:30)
--- NOTE | 2023-03-17 10:09 | P.PN ---
Progress Note - Text Progress Note Date: 03/17/23 Interval History: Patient was seen and was directable and agreeable to speak with designer/writer in the office. Patient did not take part in group this morning. She appears to be more calmer today during the interaction, continues to endorse some depression and anxiety over does state it is improving. She claims that she is happier being on the Zoloft and wants to continue on it. She claims that she was previously on 100 mg prior to coming into the hospital. She continues to be preoccupied with her nighttime medications and states that she felt "a little bit groggy" last night however did state that she will call through the night in the middle of the night and found it difficult to reinitiate sleep. Continue to have doubts about some of her medications and asked questions. We spoke about the goals for treatment and also need for therapy which patient is agreeable to. Claims that she is eating a bit better, has been speaking with her over the phone. Patient continues to be worried about her medications. At this time patient denies any suicidal or homical ideations, intent or plan. Patient denies any auditory, visual hallucinations and denies any paranoia or delusions. Patient denies any side effects from the medications and has been compliant with meds. Mental Status Exam: General Appearance: Patient appears to be then, older than stated age is alert, directable, and attempts to cooperate. He is to be anxious today. Patient appears to have improving hygiene and grooming. Behavior: Patient is seated without any agitated behavior. Indecisive. Speech: Patient's speech is fluent and nonpressured. Mood/Affect: Patient reports their mood is improving mildly, continues to be anxious, improving mildly, affect is congruent and not tearful Suicidality/Homicidality: Patient denies having any homicidal ideation intent or plan. Denies any suicidal ideations intent or plan Perceptions: Patient denies any visual hallucinations and denies any auditory hallucinations Though content/process: There is no evidence of any delusional thought content and thought process is linear and goal-directed. Focus on meds and treatment Memory and concentration: AOX3, grossly intact for the purposes of this session Judgment and insight: poor, improving mildly IMPRESSIONS: Depressive disorder unspecified Generalized anxiety disorder with panic attacks Benzodiazepine use disorder PLAN: -Patient is admitted under voluntary status to MHU for stabilization of psychiatric symptoms and safety. Patient has signed adult voluntary form and medication consent and is placed in patient's chart. -Medications: Zyprexa 5 mg daily at bedtime for anxiety/mood stabilization/insomnia, increased zoloft 100 mg daily for mood/anxiety this weekend. continue Trazodone 50 mg daily at bedtime when necessary for insomnia. continue decreasing librium scheduled and will receive her last dose tomorrow morning. CIWA protocol with prn ativan and continue to monitor. encouraged to use vistaril isntead for prn anxiety. -Ativan and Haldol and Vistaril PRN for agitation/aggression -NRT - not needed as patient does not smoke. -SW on board for discharge planning. Encourage patient to participate in groups to work on coping skills. likely discharge early next week monday vs monday if patient improves over the weekend back home.
[2023-03-17] MEDS: ACETAMINOPHEN TAB 325 MG TAB PO PRN (10:47)
[2023-03-17] MEDS: OLANZapine 5 MG TAB PO SCH (21:47)
[2023-03-18] MEDS: traZODone HCL 50 MG TAB PO PRN ×2 (00:14→23:19)
[2023-03-18] MEDS: SERTRALINE 100 MG TAB PO SCH (08:30)
--- NOTE | 2023-03-18 12:00 | P.PN ---
Subjective Progress Note Date: 03/18/23 Principal diagnosis: IMPRESSIONS: Depressive disorder unspecified Generalized anxiety disorder with panic attacks Benzodiazepine use disorder Subjective data: The patient reports that she is in the hospital because her thyroid medications were messed up She says that she has been seeing an gift shop clerk and that she was having some problems with palpitations and insomnia with her Synthroid which was then DC'd She stated that she then had a full workup including EEG and MRI and that they're trying to find out the cause for her tremors She said that she was eventually told that she had essential tremors She also reports that she was having chronic issues with insomnia and that she was taking up to 4 mg of lorazepam at nighttime for sleep She currently reports that she slept better with Zyprexa and Ativan and had also needed the trazodone as a backup She however feels that she is somewhat wiped out this morning although she slept well She said that she is hoping that her medications would be straighten out that she could be able to go home soon Mental Status Exam: General Appearance: Patient appears to be then, older than stated age is alert, directable, and attempts to cooperate. . Patient appears to have improving hygiene and grooming. Behavior: Patient is seated without any agitated behavior. Indecisive. Speech: Patient's speech is fluent and nonpressured. Mood/Affect: Patient reports their mood is improving mildly, continues to be anxious, improving mildly, affect is congruent and not tearful Suicidality/Homicidality: Patient denies having any homicidal ideation intent or plan. Denies any suicidal ideations intent or plan Perceptions: Patient denies any visual hallucinations and denies any auditory hallucinations Though content/process: There is no evidence of any delusional thought content and thought process is linear and goal-directed. Focus on meds and treatment Memory and concentration: AOX3, grossly intact for the purposes of this session Judgment and insight: poor, IMPRESSIONS: Depressive disorder unspecified Generalized anxiety disorder with panic attacks Benzodiazepine use disorder PLAN: -Patient is admitted under voluntary status to [facility] for stabilization of psychiatric symptoms and safety. Patient has signed adult voluntary form and medication consent and is placed in patient's chart. -Medications: Zyprexa 5 mg daily at bedtime for anxiety/mood stabilization/insomnia, zoloft 100 mg daily for mood/anxiety this weekend continue Trazodone 50 mg daily at bedtime when necessary for insomnia. continue decreasing librium scheduled and will receive her last dose tomorrow morning. CIWA protocol with prn ativan and continue to monitor. encouraged to use vistaril isntead for prn anxiety. -Ativan and Haldol and Vistaril PRN for agitation/aggression -NRT - not needed as patient does not smoke. -SW on board for discharge planning. Encourage patient to participate in groups to work on coping skills. likely discharge early next week monday vs monday if patient improves over the weekend back home. Holden Bundy M.D. 03/18/2023 Objective - Vital Signs Vital signs: Vital Signs Temp 97.6 F 03/18/23 08:37 Pulse 93 03/18/23 08:37 Resp 16 03/18/23 08:37 BP 111/59 03/18/23 08:37 Pulse Ox 100 03/18/23 08:37 FiO2 - Labs CBC & Chem 7: 03/14/23 07:26 03/14/23 07:26
[2023-03-18] MEDS: MAG HYDROX/AL HYDROX/SIMETH 30 ML CUP PO PRN (13:52)
[2023-03-18] MEDS: OLANZapine 5 MG TAB PO SCH (21:23)
[2023-03-19] MEDS: SERTRALINE 100 MG TAB PO SCH (08:46)
--- NOTE | 2023-03-19 10:45 | P.PN ---
Subjective Progress Note Date: 03/19/23 Principal diagnosis: IMPRESSIONS: Depressive disorder unspecified Generalized anxiety disorder with panic attacks Benzodiazepine use disorder Subjective data: Patient reports that she had genetic testing and that she saw that the SSRI was listed on one side and the Effexor was listed on the other side She states that she is not sure if this was a good thing but continues to ask what I thought about the testing and if it was any useful She also remains focused on trazodone working for the insomnia and why she should take the Zyprexa Patient remains very focused on the insomnia issue and her conversation centers around the lorazepam and the trazodone Mental Status Exam: General Appearance: Patient appears to be then, older than stated age is alert, directable, and attempts to cooperate. . Patient appears to have improving hygiene and grooming. Behavior: Patient is seated without any agitated behavior. Indecisive. Speech: Patient's speech is fluent and nonpressured. Mood/Affect: Patient reports their mood is improving mildly, continues to be anxious, improving mildly, affect is congruent and not tearful Suicidality/Homicidality: Patient denies having any homicidal ideation intent or plan. Denies any suicidal ideations intent or plan Perceptions: Patient denies any visual hallucinations and denies any auditory hallucinations Though content/process: There is no evidence of any delusional thought content and thought process is linear and goal-directed. Focus on meds and treatment Memory and concentration: AOX3, grossly intact for the purposes of this session Judgment and insight: poor, IMPRESSIONS: Depressive disorder unspecified Generalized anxiety disorder with panic attacks Benzodiazepine use disorder PLAN: Discussed reality issues regarding the use of Zyprexa for agitation and anxiety restlessness and flight of ideas and that the trazodone in combination will still be helpful for the insomnia problem and if it's working that she should not worry about trying to choose between these 2 but to take both -Patient is admitted under voluntary status to [facility] for stabilization of psychiatric symptoms and safety. Patient has signed adult voluntary form and medication consent and is placed in patient's chart. -Medications: Zyprexa 5 mg daily at bedtime for anxiety/mood stabilization/insomnia, zoloft 100 mg daily for mood/anxiety this weekend continue Trazodone 50 mg daily at bedtime when necessary for insomnia. continue decreasing librium scheduled and will receive her last dose tomorrow morning. CIWA protocol with prn ativan and continue to monitor. encouraged to use vistaril isntead for prn anxiety. -Ativan and Haldol and Vistaril PRN for agitation/aggression -NRT - not needed as patient does not smoke. -SW on board for discharge planning. Encourage patient to participate in groups to work on coping skills. likely discharge early next week monday vs monday if patient improves over the weekend back home. Holden Bundy M.D. 03/19/2023 Objective - Vital Signs Vital signs: Vital Signs Temp 97.6 F 03/18/23 08:37 Pulse 93 03/18/23 08:37 Resp 16 03/18/23 08:37 BP 111/59 03/18/23 08:37 Pulse Ox 100 03/18/23 08:37 FiO2 Intake & Output 03/18/23 03/19/23 03/19/23 18:59 06:59 18:59 Weight 57.9 kg - Labs CBC & Chem 7: 03/14/23 07:26 03/14/23 07:26
[2023-03-19] MEDS: ACETAMINOPHEN TAB 325 MG TAB PO PRN (10:52)
[2023-03-19] MEDS: hydrOXYzine pamoate 25 MG CAP PO PRN (18:31)
[2023-03-19] MEDS: OLANZapine 5 MG TAB PO SCH (21:58)
[2023-03-19] MEDS: traZODone HCL 50 MG TAB PO PRN (21:59)
[2023-03-20] MEDS ORDERED: SERTRALINE 50 MG TAB PO STA (08:48)
[2023-03-20] MEDS: SERTRALINE 100 MG TAB PO SCH (09:17)
[2023-03-20] MEDS: hydrOXYzine pamoate 25 MG CAP PO PRN (09:19)
--- NOTE | 2023-03-20 09:21 | P.PN ---
Progress Note - Text Progress Note Date: 03/20/23 Interval History: Patient was seen and was directable and agreeable to speak with ghost writer in the office. Patient claims that she feels unready to go home today, states that she is still feeling anxious and mildly depressed. She claims that she was having a "tremor" yesterday and states that she does not know where it came from. She claims that she was feeling anxious at that times and believes that that might trigger to her. Claims that she needed a shot of Ativan last night to help her with sleep, has not been sleeping well. States that she feels regretful for going back on the Zoloft and states that "I want to switch back to another medication". Patient continues to be fairly preoccupied about her medications and believes that she is not responding well to them. Continues to have doubts about some of her medications and asked several questions. We spoke about the goals for treatment and also need for therapy which patient is agreeable to. Claims that she is eating a bit better. Patient continues to be worried about her medications. At this time patient denies any suicidal or homical ideations, intent or plan. Patient denies any auditory, visual hallucinations and denies any paranoia or delusions. Patient denies any side effects from the medications and has been compliant with meds. Mental Status Exam: General Appearance: Patient appears to be then, older than stated age is alert, directable, and attempts to cooperate. SHe is fairly anxious today. Patient appears to have improving hygiene and grooming. Behavior: Patient is seated without any agitated behavior. Indecisive. Speech: Patient's speech is fluent and nonpressured. Mood/Affect: Patient reports their mood is improving mildly, continues to be anxious, improving mildly, affect is congruent Suicidality/Homicidality: Patient denies having any homicidal ideation intent or plan. Denies any suicidal ideations intent or plan Perceptions: Patient denies any visual hallucinations and denies any auditory hallucinations Though content/process: There is no evidence of any delusional thought content and thought process is linear and goal-directed. Focus on meds and treatment Memory and concentration: AOX3, grossly intact for the purposes of this session Judgment and insight: poor, improving mildly IMPRESSIONS: Depressive disorder unspecified Generalized anxiety disorder with panic attacks Benzodiazepine use disorder PLAN: -Patient is admitted under voluntary status to [facility] for stabilization of psychiatric symptoms and safety. Patient has signed adult voluntary form and medication consent and is placed in patient's chart. -Medications: increase Zyprexa 7.5 mg daily at bedtime for anxiety/mood stabilization/insomnia, increased zoloft 150 mg daily for mood/anxiety this weekend. continue Trazodone 50 mg daily at bedtime when necessary for insomnia. encouraged to use vistaril isntead for prn anxiety. will consider buspar if needed for anxiety. -Ativan and Haldol and Vistaril PRN for agitation/aggression -NRT - not needed as patient does not smoke. -SW on board for discharge planning. Encourage patient to participate in groups to work on coping skills. likely discharge back home in 2-3 days.
[2023-03-20] MEDS: ACETAMINOPHEN TAB 325 MG TAB PO PRN (12:14)
[2023-03-20] MEDS: OLANZapine 7.5 MG TAB PO SCH (21:52)
[2023-03-20] MEDS: traZODone HCL 50 MG TAB PO PRN (23:30)
[2023-03-21] MEDS: SERTRALINE 50 MG TAB PO SCH (08:46)
--- NOTE | 2023-03-21 09:50 | P.PN ---
Progress Note - Text Progress Note Date: 03/21/23 Interval History: Patient was seen in her bed today and was directable and agreeable to speak with check writer salesperson in the office. Patient claims that she is doing a bit better compared to yesterday. She states that yesterday Librium did help to suppress her anxiety during the day. We spoke about the drawbacks of Librium. She states that today she was feeling kind of "shaky" in the morning and did have some anxiety and was resting in her bed after taking her Zoloft. We spoke about likely increasing the Zoloft and the target dose range. She claims that she is trying to go to some groups. She appears to be improved in terms of her affect today, no tearfulness and more brighter. States that she feels that she is on a better direction in terms of treatment for anxiety. She has other questions about her medications today. States that she needed the trazodone to sleep last night. Claims that she is eating a bit better. Patient continues to be worried about her medications. At this time patient denies any suicidal or homical ideations, intent or plan. Patient denies any auditory, visual hallucinations and denies any paranoia or delusions. Patient denies any side effects from the medications and has been compliant with meds. Mental Status Exam: General Appearance: Patient appears to be then, older than stated age is alert, directable, and attempts to cooperate. SHe is less anxious today. Patient appears to have improving hygiene and grooming. Behavior: Patient is seated without any agitated behavior. Improving Speech: Patient's speech is fluent and nonpressured. Hesitant at times. Mood/Affect: Patient reports their mood is improving mildly, continues to be anxious, improving mildly, affect is congruent Suicidality/Homicidality: Patient denies having any homicidal ideation intent or plan. Denies any suicidal ideations intent or plan Perceptions: Patient denies any visual hallucinations and denies any auditory hallucinations Though content/process: There is no evidence of any delusional thought content and thought process is linear and goal-directed. Focus on meds and treatment, less anxious. Memory and concentration: AOX3, grossly intact for the purposes of this session Judgment and insight: improving mildly IMPRESSIONS: Depressive disorder unspecified Generalized anxiety disorder with panic attacks Benzodiazepine use disorder PLAN: -Patient is admitted under voluntary status to [facility] for stabilization of psychiatric symptoms and safety. Patient has signed adult voluntary form and medication consent and is placed in patient's chart. -Medications: continue Zyprexa 7.5 mg daily at bedtime for anxiety/mood stabilization/insomnia, zoloft 150 mg daily for mood/anxiety, consider increasing tomorrow. change Trazodone 50 mg daily at bedtime scheduled for insomnia. start scheduled vistaril 50 mg at 0900 and 1300 for anxiety and vistarul prn for anxiety -Ativan and Haldol and Vistaril PRN for agitation/aggression -NRT - not needed as patient does not smoke -SW on board for discharge planning. Encourage patient to participate in groups to work on coping skills. likely discharge back home in 2-3 days.
[2023-03-21] MEDS: hydrOXYzine pamoate 25 MG CAP PO SCH ×2 (10:08→13:46)
[2023-03-21] MEDS: OLANZapine 7.5 MG TAB PO SCH (21:34)
[2023-03-21] MEDS: traZODone HCL 50 MG TAB PO SCH (22:28)
[2023-03-22] MEDS: hydrOXYzine pamoate 25 MG CAP PO SCH ×2 (08:43→13:02)
[2023-03-22] MEDS: SERTRALINE 50 MG TAB PO SCH (08:44)
[2023-03-22 09:28] VITALS: TEMP 98.1
--- NOTE | 2023-03-22 12:04 | P.PN ---
Progress Note - Text Progress Note Date: 03/22/23 Interval History: Patient was seen taking part in group today and was directable and agreeable to speak with loan underwriter in the office. Patient claims that she is doing a bit better in terms of her mood and also anxiety. She states that she was able to sleep much better last night with the medications. Claims that she is able to participate more in groups. States that she did have a "tremor episode" yesterday and also felt lightheaded and needed to remove herself from the group. She continues to be somatically preoccupied at times. She was concerned that this may have been caused from the Vistaril however is willing to try it again today. She claims that she has been speaking with her regularly over the phone. States that she wants to stay on the same medications at this time. Claims that her mood and appetite are also improving. At this time patient denies any suicidal or homical ideations, intent or plan. Patient denies any auditory, visual hallucinations and denies any paranoia or delusions. Patient denies any side effects from the medications and has been compliant with meds. Mental Status Exam: General Appearance: Patient appears to be then, older than stated age is alert, directable, and attempts to cooperate. She is less anxious today. Patient appears to have improving hygiene and grooming. Behavior: Patient is seated without any agitated behavior. Improving Speech: Patient's speech is fluent and nonpressured. Hesitant at times. Mood/Affect: Patient reports their mood is improving mildly, affect is congruent Suicidality/Homicidality: Patient denies having any homicidal ideation intent or plan. Denies any suicidal ideations intent or plan Perceptions: Patient denies any visual hallucinations and denies any auditory hallucinations Though content/process: There is no evidence of any delusional thought content and thought process is linear and goal-directed. Focus on meds and treatment Memory and concentration: AOX3, grossly intact for the purposes of this session Judgment and insight: improving mildly IMPRESSIONS: Depressive disorder unspecified Generalized anxiety disorder with panic attacks Benzodiazepine use disorder PLAN: -Patient is admitted under voluntary status to [facility] for stabilization of psychiatric symptoms and safety. Patient has signed adult voluntary form and medication consent and is placed in patient's chart. -Medications: continue Zyprexa 7.5 mg daily at bedtime for anxiety/mood stabilization/insomnia, zoloft 150 mg daily for mood/anxiety, consider increasing tomorrow. Trazodone 50 mg daily at bedtime scheduled for insomnia. scheduled vistaril 50 mg at 0900 and 1300 for anxiety and vistaril prn for anxiety, will consider reducing vistaril to just daily scheudled dosing if patient is still having an afternoon reaction today. -Ativan and Haldol and Vistaril PRN for agitation/aggression -NRT - not needed as patient does not smoke -SW on board for discharge planning. Encourage patient to participate in groups to work on coping skills. likely discharge back home tomorrow.
[2023-03-22] MEDS: OLANZapine 7.5 MG TAB PO SCH (21:30)
[2023-03-22] MEDS: traZODone HCL 50 MG TAB PO SCH (22:16)
[2023-03-23] MEDS ORDERED: diphenhydrAMINE 50 MG CAP PO PRN (01:06)
[2023-03-23 07:06] VITALS: BP 110/73; PULSE 66; RESP 18
[2023-03-23] MEDS: hydrOXYzine pamoate 25 MG CAP PO SCH (08:25)
[2023-03-23] MEDS: SERTRALINE 50 MG TAB PO SCH (08:25)
--- NOTE | 2023-03-23 11:32 | P.DS ---
Providers Date of admission: 03/14/23 00:09 Expected date of discharge: 03/23/23 Attending physician: Dean Nguyen MD Consults: 03/14/23 00:13 Consult Physician Routine Consulting Provider: Geetha Brito Consult Reason/Comments: For H & P for Medical Follow Up Do you want consulting provider notified?: Yes, Notify in am Primary care physician: Padmini Peterson - Discharge Diagnosis(es) (1) Depressive disorder Current Visit: Yes Status: Acute Priority: High (2) Generalized anxiety disorder with panic attacks Current Visit: Yes Status: Acute Priority: Medium (3) Mild benzodiazepine use disorder Current Visit: Yes Status: Acute Priority: Low Hospital Course: Admission HPI: Admission note was completed by [fiction and nonfiction prose writer] "Patient is a 67-year-old female, currently lives with her in a house, she has 3 kids. Patient presented to the hospital complaining of severe anxiety, suicidal ideations depression and also scratching her arm. Patient apparently was claiming the ER that she has been taking Ativan at an increasing dose and her Zoloft has not been helping her. She was seen today and agreeable to writer technical publications today in the office. She signed voluntary for admission. She states that her anxiety is "extreme" and states that she is also developed a tremor as well when her anxiety gets worse. States that this is been going on and progressively getting worse since October of this year. States that her sleep and appetite are poor. 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 She claims that her tremor is also a "body tremor" and has been aggravated by stressors. States that she also went to a neurologist who states that it's a essential tremor" and started on primidone. Claims that she did not react well with the primidone. Claims that the tremor is not when she is resting and mainly when she is agitated and upset. States that she also saw a psychiatrist which did not help her. Claims that she was up 200 mg of Zoloft however states that it is not been helping her and has been on Zoloft Zoloft chronically. Claims that the Ativan she has been taking more and more of. Claims her mood is depressed and she was visibly crying and upset during the interview. She states that her appetite is also poor. Patient denies any current suicidal or homicidal ideations intent or plan. At this time patient denies any auditory or visual hallucinations. Patient admits to using no recreational drugs cigarettes or alcohol." Hospital course: Upon admission to the unit patient was [directable and agreeable to commence treatment and signed adult voluntary form]. Patient got along well with other patients on the unit and followed unit protocol. Patient was compliant with the medications and denied any side effects throughout hospital course. Patient was started on [Zyprexa and increased to a dose of 7.5 mg daily at bedtime for mood adjunct/insomnia/anxiety, Zoloft increased her dose of 150 mg daily for mood/anxiety, Vistaril 50 mg scheduled daily with when necessary doses during the day for anxiety.]. Trazodone 50 mg daily at bedtime for insomnia. Patient was placed on a tapering dose of Librium due to withdrawing from benzodiazepines and is now tapered off. Patient spoke of her stressors and engaged in therapy both group and individual. Patient was also seen by medical team for history and physical exam. [] Throughout the course of the hospitalization patient gradually improved with regards to [mood, anxiety], panic attacks, sleep and [became more future oriented with improved insight and judgment]. On the day of discharge patient denied any suicidal or homicidal ideations intent or plan denied any auditory or visual hallucinations. Patient endorsed wanting to live for her health and her future. The patient denied any access to guns or weapons. Patient denied any paranoia and did not endorse any delusions. Patient does [not] have a significant history of substance abuse [and] was counseled on abstaining from all substances including alcohol and marijuana. Patient was also counseled on the medications and need for regular compliance and was encouraged to follow-up with their outpatient appointment for mental health and also for primary care. Prior to discharge today, fiction and nonfiction prose writer, patient and her Lobo had a family meeting over the phone to discuss treatment, diagnoses and plan going forward. fiction and nonfiction prose writer attempted to answer all questions. He states that he has noticed an improvement in patients condition. He did confirm that there is hunting guns in the house however they are all locked away. Mental status exam: General Appearance: Patient appears to be [thin, wearing glasses, ]stated age is alert, pleasant, and cooperative. Patient is in no acute distress and has improved hygiene and grooming Behavior: Patient is calmly seated without any agitated behavior. Speech: Patient's speech is fluent and nonpressured. Mood/Affect: Patient reports their mood is "[better]", affect is congruent and euthymic. Suicidality/Homicidality: Patient denies having any suicidal or homicidal ideation intent or plan. Perceptions: Patient denies any auditory or visual hallucinations. Though content/process: There is no evidence of any delusional thought content and thought process is linear and goal-directed. [more future oriented] Memory and concentration: AOX3, grossly intact for the purposes of this session. Can spell "WORLD" backwards correctly. Judgment and insight: improved with guarded prognosis Impression: Depressive disorder unspecified Generalized anxiety disorder with panic attacks Mild benzodiazepine use disorder Plan: -Continue with discharge today as patient has improved and stabilized psychiatrically and is not currently an imminent threat to [herself] and/or others -Continue medications: Zyprexa 7.5 mg qhs for insomnia/anxiety/mood adjunct, zoloft 150 mg daily for mood/anxiety, vistaril 50 mg daily scheudled plus 50 mg daily prn for anxiety, trazodone 50 mg qhs for insomnia/mood. -Patient was counseled on the need for medication compliance and appropriate follow-up at mental health and also primary care for medical issues. Patient verbalized understanding and agreed. -Social work to [arrange for and conduct family meeting to ensure safety upon discharge and answer any questions/concerns.] Social work also to arrange for patients follow up appointments with [facility] counselling for psychiatric care along with follow up with primary care provider. -Patient counseled on abstaining from recreational drugs and marijuana and alcohol. Was informed/educated on the adverse effects on their physical and mental health. [Patient verbally agreed and understood]. -Patient was instructed to return to the hospital or seek immediate medical care if their psychiatric or medical symptoms do worsen or reoccur. Allergies Allergy/AdvReac Type Severity Reaction Status Date / Time Penicillins Allergy Unknown Verified 03/13/23 16:53 Childhood propranolol AdvReac Nausea & Verified 03/13/23 16:57 Vomiting/Dizziness/Decreased BP Laboratory Results WBC 5.7 k/uL (3.8-10.6) 03/14/23 07:26 RBC 4.62 m/uL (3.80-5.40) 03/14/23 07:26 Hgb 14.9 gm/dL (11.4-16.0) 03/14/23 07:26 Hct 44.1 % (34.0-46.0) 03/14/23 07:26 MCV 95.4 fL (80.0-100.0) 03/14/23 07:26 MCH 32.2 pg (25.0-35.0) 03/14/23 07: MCHC 33.7 g/dL (31.0-37.0) 03/14/23 07:26 RDW 12.5 % (11.5-15.5) 03/14/23 07:26 Plt Count 122 k/uL (150-450) L 03/14/23 07:26 MPV 8.2 03/14/23 07:26 Neutrophils % 75 % 03/14/23 07:26 Lymphocytes % 16 % 03/14/23 07:26 Monocytes % 7 % 03/14/23 07: Eosinophils % 0 % 03/14/23 07: Basophils % 0 % 03/14/23 07:26 Neutrophils # 4.3 k/uL (1.3-7.7) 03/14/23 07:26 Lymphocytes # 0.9 k/uL (1.0-4.8) L 03/14/23 07:26 Monocytes # 0.4 k/uL (0-1.0) 03/14/23 07:26 Eosinophils # 0.0 k/uL (0-0.7) 03/14/23 07:26 Basophils # 0.0 k/uL (0-0.2) 03/14/23 07:26 Sodium 135 mmol/L (137-145) L 03/14/23 07:26 Potassium 4.4 mmol/L (3.5-5.1) 03/14/23 07:26 Chloride 102 mmol/L (98-107) 03/14/23 07:26 Carbon Dioxide 25 mmol/L (22-30) 03/14/23 07:26 Anion Gap 8 mmol/L 03/14/23 07:26 BUN 15 mg/dL (7-17) 03/14/23 07:26 Creatinine 0.62 mg/dL (0.52-1.04) 03/14/23 07:26 Est GFR (CKD-EPI)AfAm >90 (>60 ml/min/1.73 sqM) 03/14/23 07:26 Est GFR (CKD-EPI)NonAf >90 (>60 ml/min/1.73 sqM) 03/14/23 07:26 Glucose 96 mg/dL (74-99) 03/14/23 07:[address] Glu mg/dL 100 mg/dL 03/14/23 07:26 Hemoglobin A1c 5.1 % (<=6.0) 03/14/23 07:26 Calcium 9.3 mg/dL (8.4-10.2) 03/14/23 07:26 Total Bilirubin 0.7 mg/dL (0.2-1.3) 03/14/23 07:26 Conjugated Bilirubin 0.0 mg/dL (0.0-0.3) 03/14/23 07:26 Unconjugated Bilirubin 0.6 mg/dL (0.0-1.1) 03/14/23 07:26 Delta Bilirubin 0.1 mg/dL (0.0-0.2) 03/14/23 07:26 AST 20 U/L (14-36) 03/14/23 07:26 ALT 19 U/L (4-34) 03/14/23 07:26 Alkaline Phosphatase 73 U/L (38-126) 03/14/23 07:26 Total Protein 7.0 g/dL (6.3-8.2) 03/14/23 07:26 Albumin 4.4 g/dL (3.5-5.0) 03/14/23 07:26 Triglycerides 102.00 mg/dL (0.00-149.00) 03/14/23 07:26 Cholesterol 169.00 mg/dL (0.00-200.00) 03/14/23 07:26 LDL Cholesterol, Calc 100.0 mg/dL (0.0-131.0) 03/14/23 07:26 VLDL Cholesterol, Calc 20.40 mg/dL (5.00-40.00) 03/14/23 07:26 HDL Cholesterol 48.60 mg/dL (40.00-60.00) 03/14/23 07:26 Cholesterol/HDL Ratio 3.48 Ratio 03/14/23 07:26 TSH 1.630 mIU/L (0.465-4.680) 03/14/23 07:26 Coronavirus (PCR) Not Detected (Not Detectd) 03/13/23 22:14 Vital Signs Temp 98.1 F 03/23/23 07:05 Pulse 66 03/23/23 07:05 Resp 18 03/23/23 07:05 BP 110/73 03/23/23 07:05 Pulse Ox 100 03/23/23 07:05 FiO2 Patient Condition at Discharge: Stable Plan - Discharge Summary Discharge Rx Participant: No New Discharge Prescriptions: New traZODone HCL [Desyrel] 50 mg PO HS 14 Days #14 tab hydrOXYzine pamoate [Vistaril] 50 mg PO DAILY PRN 14 Days #14 capsule PRN Reason: Anxiety hydrOXYzine pamoate [Vistaril] 50 mg PO DAILY 14 Days #14 capsule Sertraline [Zoloft] 150 mg PO DAILY 14 Days #14 tab OLANZapine [ZyPREXA] 7.5 mg PO HS 14 Days #14 tab Continue Acetaminophen [Tylenol] 650 mg PO Q4H PRN PRN Reason: Fever And/ Or Pain Discontinued Sertraline HCl 100 mg PO DAILY LORazepam [Ativan] 0.5 mg PO TID Discharge Medication List Acetaminophen [Tylenol] 650 mg PO Q4H PRN 03/13/23 [History] OLANZapine [ZyPREXA] 7.5 mg PO HS 14 Days #14 tab 03/23/23 [Rx] Sertraline [Zoloft] 150 mg PO DAILY 14 Days #14 tab 03/23/23 [Rx] hydrOXYzine pamoate [Vistaril] 50 mg PO DAILY 14 Days #14 capsule 03/23/23 [Rx] hydrOXYzine pamoate [Vistaril] 50 mg PO DAILY PRN 14 Days #14 capsule 03/23/23 [Rx] traZODone HCL [Desyrel] 50 mg PO HS 14 Days #14 tab 03/23/23 [Rx] Follow up Appointment(s)/Referral(s): Mami Perez [Other] - As Needed ([employer] real [employer] development manager can be contacted for assistance for any outpatient needs. ) Ruthie Valencia [Outside] - 03/27/23 4:00 pm (With therapist Kelsie ) Padmini Peterson MD [Primary Care Provider] - 1-2 days Patient Instructions/Handouts: Benzodiazepine Abuse (DC), Depression (DC), Generalized Anxiety Disorder (GEN), Panic Attack (GEN), Suicide Prevention (DC) Activity/Diet/Wound Care/Special Instructions: Avoid the use of street drugs and alcohol. Take all medications as prescribed. When you are in need of refills on your medications, please contact your medical provider and/or outpatient psychiatrist to have this done. Please go to scheduled outpatient appointments for aftercare treatment. If symptoms return or become worse, call the crisis line at and/or go to the nearest emergency room for evaluation. Discharge Disposition: HOME SELF-CARE
== END 2023-03-23 11:54 | disposition home or self-care (01) | DRG 881 ==
LOC: EC 14:06 → 3MHU 03-14 00:09
PROVIDERS: ADMIT Psychiatry & Neurology Psychiatry; ATTEND Psychiatry & Neurology Psychiatry
DX: F32.A Depression, unspecified (principal); F13.939 Sedative, hypnotic or anxiolytic use, unspecified with withdrawal, unspecified; Z20.822 Contact with and (suspected) exposure to COVID-19; F41.1 Generalized anxiety disorder; F41.0 Panic disorder [episodic paroxysmal anxiety]; G47.00 Insomnia, unspecified; G25.0 Essential tremor; E03.9 Hypothyroidism, unspecified; M17.11 Unilateral primary osteoarthritis, right knee; I83.93 Asymptomatic varicose veins of bilateral lower extremities; Z79.899 Other long term (current) drug therapy; Z72.89 Other problems related to lifestyle; Z87.442 Personal history of urinary calculi; Z85.3 Personal history of malignant neoplasm of breast; Z92.21 Personal history of antineoplastic chemotherapy; Z92.3 Personal history of irradiation; Z88.0 Allergy status to penicillin; Z88.8 Allergy status to other drugs, medicaments and biological substances; Z81.8 Family history of other mental and behavioral disorders
CPT/HCPCS: 80053; 80061; 82075; 82248; 83036; 84443; 85025; 87635; 99285

== ENCOUNTER → 2023-05-30 | Outpatient (CLI) | payer MEDICARE ==
[2023-05-30 11:29] LABS: Basophils # (A) 0.03 X 10*3/uL (0.00-0.10); Basophils % (A) 0.6 %; Eosinophils # (A) 0.06 X 10*3/uL (0.04-0.35); Eosinophils % (A) 1.3 %; HCT 40.2 % (37.2-46.3); Lymphocytes # (A) 1.43 X 10*3/uL (0.90-5.00); Lymphocytes % (A) 29.8 %; MCH 30.2 pg (27.0-32.0); MCHC 32.3 d/dL (32.0-37.0); MCV 93.5 FL (80.0-97.0); Monocytes # (A) 0.42 X 10*3/uL (0.20-1.00); Monocytes % (A) 8.8 %; NRBC Per 100 WBC 0 X 10*3/uL (0.00-0.01); Neutrophils # (A) 2.84 X 10*3/uL (1.80-7.70); Neutrophils % (A) 59.1 %; Platelet Count 104 X 10*3/uL (140-440); RDW 12.5 % (11.5-14.5)
[2023-05-30 13:48] LABS: ALT 42 U/L (8-44); AST 26 U/L (13-35); Albumin 4.8 d/dL (3.8-4.9); Albumin/Globulin Ratio 2.29 Ratio (1.60-3.17); Alkaline Phosphatase 94 U/L (41-126); BUN/Creat Ratio 27.25 Ratio (12.00-20.00); Blood Urea Nitrogen 21.8 mg/dL (9.0-27.0); Calcium 9.3 mg/dL (8.7-10.3); Carbon Dioxide 25.1 mmol/L (21.6-31.8); Chloride 104 mmol/L (96-109); Chol/HDL Ratio 3.71 Ratio; Globulin 2.1 d/dL (1.6-3.3); Glucose 93 mg/dL (70-110); LDL Cholesterol,Calculated 119.8 mg/dL (0.0-131.0); Potassium 4.1 mmol/L (3.5-5.5); Sodium 140 mmol/L (135-145); T4, Free (Free Thyroxine) 0.85 ng/dL (0.80-1.80); Total Bilirubin 0.3 mg/dL (0.3-1.2); Total Protein 6.9 d/dL (6.2-8.2)
== END | disposition home or self-care (01) ==
LOC: LABWHC1 08:29
PROVIDERS: ATTEND Family Medicine
DX: E03.9 Hypothyroidism, unspecified (principal); E55.9 Vitamin D deficiency, unspecified; G45.9 Transient cerebral ischemic attack, unspecified
CPT/HCPCS: 36415; 80053; 80061; 82306; 84439; 84443; 85025

== ENCOUNTER → 2023-06-09 | Outpatient (CLI) | payer MEDICARE ==
--- NOTE | 2023-06-09 13:22 | MM ---
Reason for Exam: Hx of breast cancer, conservation therapy. Last screening mammogram was performed 12 month(s) ago. Patient History: Menarche at age 15. First Full-Term at age 24. Postmenopausal. Patient has history of breast feeding. Breast cancer, right, age 56. Hormonal Contraceptives for 3 years from age 19 until age 22. 1993, Benign Core Biopsy on the left side. 10/17/2011, Lumpectomy on the Right side. 11/06/2014, Benign Cyst Aspiration on the right side. 10/17/2011, Malignant Excisional Biopsy on the right side. 10/05/2011, Malignant Core Biopsy on the right side. 2011, Chemotherapy. 2011, Radiation Therapy on the right side. Maternal cousin had breast cancer, age 55. Paternal cousin had breast cancer at or over age 50. Prior Study Comparison: 10/16/2014 Right Diagnostic Ultrasound, [facility]. 11/06/2014 Right Diagnostic Mammogram, [facility]. 05/11/2015 Right Diagnostic Ultrasound, [facility]. 11/26/2015 Bilateral Diagnostic Mammogram, [facility]. 11/26/2015 Left Diagnostic Ultrasound, [facility]. 05/30/2016 Left Diagnostic Mammogram, [facility]. 05/30/2016 Left Diagnostic Ultrasound, [facility] 12/08/2016 Bilateral Diagnostic Mammogram, [facility] 12/26/2017 Bilateral Diagnostic Mammogram, [facility]. 01/16/2019 Bilateral Diagnostic Mammogram, [facility]. 04/07/2020 Bilateral Diagnostic Mammogram, [facility] 04/16/2021 Bilateral Diagnostic Mammogram, [facility] 06/07/2022 Bilateral MG 3D diag mammo w/cad JOSE, [facility]. Tissue Density: The breast tissue is heterogeneously dense. This may lower the sensitivity of mammography. Findings: Analyzed By CAD. Postsurgical changes involving the right breast are stable. Heterogeneous breast tissue seen with scattered benign calcifications and no suspicious new mass or new distortion. Overall Assessment: Benign, BI-RAD 2 Management: Diagnostic Mammogram of both breasts in 1 year. . Results were given to the patient verbally at the time of exam. Patient should continue monthly self-breast exams. A clinical breast exam by your physician is recommended on an annual basis. This exam should not preclude additional follow-up of suspicious palpable abnormalities. Note on Yaa scores and lifetime risk: 1. A Yaa score greater than 3% is considered moderate risk. If this is the case, consider specialist referral to assess eligibility for a risk reducing agent. 2. If overall lifetime risk for the development of breast cancer is 20% or higher, the patient may qualify for future screening with alternating mammogram and breast MRI. Electronically signed and approved by: Burke Moreno M.D. Radiologis
== END | disposition home or self-care (01) ==
LOC: RADMAMWWP 12:46
PROVIDERS: ATTEND Family Medicine
DX: R92.8 Other abnormal and inconclusive findings on diagnostic imaging of breast (principal); Z78.0 Asymptomatic menopausal state; Z85.3 Personal history of malignant neoplasm of breast; Z80.3 Family history of malignant neoplasm of breast
CPT/HCPCS: 77066; G0279; 77062

== ENCOUNTER → 2023-11-09 | Outpatient (CLI) | payer MEDICARE ==
[2023-11-09 20:30] LABS: Basophils # (A) 0.03 X 10*3/uL (0.00-0.10); Basophils % (A) 0.6 %; Eosinophils # (A) 0.02 X 10*3/uL (0.04-0.35); Eosinophils % (A) 0.4 %; HCT 42.4 % (37.2-46.3); HGB 14.2 g/dL (12.0-15.0); Lymphocytes # (A) 0.92 X 10*3/uL (0.90-5.00); Lymphocytes % (A) 19.3 %; MCH 32.3 pg (27.0-32.0); MCHC 33.5 g/dL (32.0-37.0); MCV 96.6 FL (80.0-97.0); Mean Platelet Volume 11.3 FL (9.5-12.2); Monocytes # (A) 0.36 X 10*3/uL (0.20-1.00); Monocytes % (A) 7.5 %; NRBC Per 100 WBC 0 X 10*3/uL (0.00-0.01); Neutrophils # (A) 3.42 X 10*3/uL (1.80-7.70); Neutrophils % (A) 71.8 %; Platelet Count 81 X 10*3/uL (140-440); RBC 4.39 X 10*6/uL (4.10-5.20); RDW 12.3 % (11.5-14.5); WBC 4.77 X 10*3/uL (4.50-10.00)
[2023-11-09 21:18] LABS: BUN/Creat Ratio 25.25 Ratio (12.00-20.00); Blood Urea Nitrogen 20.2 mg/dL (9.0-27.0); Carbon Dioxide 23.9 mmol/L (21.6-31.8); Chloride 104 mmol/L (96-109); Glucose 74 mg/dL (70-110); Potassium 3.9 mmol/L (3.5-5.5); Sodium 143 mmol/L (135-145)
[2023-11-09 21:19] LABS: ALT 16 U/L (8-44); AST 15 U/L (13-35); Albumin 4.7 g/dL (3.8-4.9); Albumin/Globulin Ratio 1.88 Ratio (1.60-3.17); Alkaline Phosphatase 73 U/L (41-126); Calcium 9.6 mg/dL (8.7-10.3); Globulin 2.5 g/dL (1.6-3.3); T4, Free (Free Thyroxine) 1.36 ng/dL (0.80-1.80); Total Bilirubin 0.3 mg/dL (0.3-1.2); Total Protein 7.2 g/dL (6.2-8.2)
== END | disposition home or self-care (01) ==
LOC: LABWHC1 10:10
PROVIDERS: ATTEND Family Medicine
DX: E03.9 Hypothyroidism, unspecified (principal); E55.9 Vitamin D deficiency, unspecified; R53.83 Other fatigue
CPT/HCPCS: 36415; 80053; 82306; 84439; 84443; 85025

== ENCOUNTER → 2024-07-18 | Outpatient (CLI) | payer MEDICARE ==
[2024-07-18 16:17] LABS: ALT 17 U/L (8-44); AST 16 U/L (13-35); Albumin 4.4 g/dL (3.8-4.9); Albumin/Globulin Ratio 1.91 Ratio (1.60-3.17); Alkaline Phosphatase 70 U/L (41-126); BUN/Creat Ratio 21.75 Ratio (12.00-20.00); Blood Urea Nitrogen 17.4 mg/dL (9.0-27.0); Calcium 9.3 mg/dL (8.7-10.3); Chloride 108 mmol/L (96-109); Globulin 2.3 g/dL (1.6-3.3); Glucose 101 mg/dL (70-110); LDL Cholesterol,Calculated 126.8 mg/dL (0.0-131.0); Potassium 4.3 mmol/L (3.5-5.5); Sodium 141 mmol/L (135-145); T4, Free (Free Thyroxine) 1.15 ng/dL (0.80-1.80); Total Bilirubin 0.3 mg/dL (0.3-1.2); Total Protein 6.7 g/dL (6.2-8.2)
[2024-07-18 17:06] LABS: Basophils # (A) 0.02 X 10*3/uL (0.00-0.10); Basophils % (A) 0.5 %; Eosinophils # (A) 0.05 X 10*3/uL (0.04-0.35); Eosinophils % (A) 1.2 %; HCT 38.9 % (37.2-46.3); HGB 12.8 g/dL (12.0-15.0); Lymphocytes # (A) 1.03 X 10*3/uL (0.90-5.00); MCH 31.1 pg (27.0-32.0); MCHC 32.9 g/dL (32.0-37.0); MCV 94.4 FL (80.0-97.0); Mean Platelet Volume 11.5 FL (9.5-12.2); Monocytes # (A) 0.36 X 10*3/uL (0.20-1.00); Monocytes % (A) 8.7 %; NRBC Per 100 WBC 0 X 10*3/uL (0.00-0.01); Neutrophils # (A) 2.65 X 10*3/uL (1.80-7.70); Neutrophils % (A) 64.4 %; Platelet Count 84 X 10*3/uL (140-440); RBC 4.12 X 10*6/uL (4.10-5.20); RDW 12.7 % (11.5-14.5); WBC 4.12 X 10*3/uL (4.50-10.00)
== END | disposition home or self-care (01) ==
LOC: LABWHC1 10:12
PROVIDERS: ATTEND Family Medicine
DX: E03.9 Hypothyroidism, unspecified (principal); E55.9 Vitamin D deficiency, unspecified; E78.2 Mixed hyperlipidemia
CPT/HCPCS: 36415; 80053; 80061; 82306; 84439; 84443; 85025

== ENCOUNTER → 2024-07-24 | Outpatient (CLI) | payer MEDICARE ==
--- NOTE | 2024-07-24 11:21 | MM ---
Reason for Exam: Additional evaluation requested from prior study. Last mammogram was performed 1 year(s) and 2 month(s) ago. Patient History: Menarche at age 15. First Full-Term at age 24. Postmenopausal. Patient has history of breast feeding. Breast cancer, right, age 56. Hormonal Contraceptives for 3 years from age 19 until age 22. 1993, Benign Core Biopsy on the left side. 10/17/2011, Lumpectomy on the Right side. 11/06/2014, Benign Cyst Aspiration on the right side. 10/17/2011, Malignant Excisional Biopsy on the right side. 10/05/2011, Malignant Core Biopsy on the right side. 2011, Chemotherapy. 2011, Radiation Therapy on the right side. Maternal cousin had breast cancer, age 55. Paternal cousin had breast cancer at or over age 50. Tissue Density: The breasts are heterogeneously dense, which may obscure small masses. Findings: Analyzed By CAD. The pattern is stable. Multiple surgical clips are within the upper outer right breast prior lumpectomy. Coarse calcifications are within the right breast. Right breast vascular calcifications are present. No suspicious groups of microcalcifications, spiculated or lobular masses, architectural distortion or other secondary signs of malignancy are mammographically apparent. Overall Assessment: Benign, BI-RAD 2 Management: Screening Mammogram of both breasts in 1 year. A negative mammogram report should not preclude additional follow up of suspicious palpable abnormalities. Patient should continue monthly self breast exam. A clinical breast exam by your physician is recommended on an annual basis and results should be correlated with mammographic findings. Note on Yaa scores and lifetime risk: 1. A Yaa score greater than 3% is considered moderate risk. If this is the case, consider specialist referral to assess eligibility for a risk reducing agent. 2. If overall lifetime risk for the development of breast cancer is 20% or higher, the patient may qualify for future screening with alternating mammogram and breast MRI. [facility], , 07/24/2024 11:19 AM. Electronically signed and approved by: Dean Quintana D.O. Radiologis
--- NOTE | 2024-07-24 19:48 | BD ---
EXAMINATION TYPE: Axial Bone Density DATE OF EXAM: 07/24/2024 CLINICAL HISTORY: 68 years old Female. ICD-10 CODE: M810 AGE RELATED OSTEO , Additional History: Height: 5 ft 5 in Weight: 149 FRAX RISK QUESTIONS: Alcohol (3 or more units per day): no Family History (Parent hip fracture): no Glucocorticoids (More than 3mos): no (Ex: prednisone, prednisolone, methylprednisolone, dexamethasone, and hydrocortisone). History of Fracture in Adulthood: no Secondary Osteoporosis: 1. Type 1 Diabetes: no 2. Hyperthyroidism: none now 3. Menopause before 45: no 4. Malnutrition: no 5. Chronic liver disease: no Rheumatoid Arthritis: no Current Tobacco Use: no RISK FACTORS HISTORY OF: Surgery to Spine/Hip(right/left)/Wrist (right/left): no MEDICATIONS: Thyroid Medications: none Osteoporosis Medications: none EXAM MEASUREMENTS: Bone mineral densitometry was performed using the [employer] System. Bone mineral density as measured about the Lumbar spine is: ----- L1-L4(G/cm2): 1.037 T Score Values are as follows: ----- L1: -1.8 ----- L2: -2.1 ----- L3: -1.0 ----- L4: -0.3 ----- L1-L4: -1.2 Z Score Values are as follows: ----- L1: -0.2 ----- L2: -0.5 ----- L3: 0.5 ----- L4: 1.3 ----- L1-L4: 0.4 Bone mineral density has: increased 0.7 % since study of: 2021 Bone mineral density about the R hip (g/cm2): 0.630 Bone mineral density about the L hip (g/cm2): 0.730 T Score values are as follows: -----R Neck: -2.9 -----L Neck: -2.2 -----R Total: -2.8 -----L Total: -2.2 Z Score values are as follows: -----R Neck: -1.4 -----L Neck: -0.7 -----R Total: -1.5 -----L Total: -0.9 Bone mineral density has: decreased -0.9 % since study of: 2021 FRAX%s: The graph provided illustrates a 27.5 % chance for a major osteoporotic fx and a 8.4 % chance for the hips probability for fx in 10 years time. IMPRESSION: Osteopenia (T Score between -2.5 and -1). There is slightly increased risk of fracture and the patient may be considered for treatment. Re-Screen 2-5 years. NOTE: T-SCORE=SD OF THE YOUNG ADULT MEAN. [facility], , 07/24/2024 7:45 PM
== END | disposition home or self-care (01) ==
LOC: RADBDWWP 10:27
PROVIDERS: ATTEND Family Medicine
DX: C50.919 Malignant neoplasm of unspecified site of unspecified female breast (principal); M81.0 Age-related osteoporosis without current pathological fracture; R92.333 Mammographic heterogeneous density, bilateral breasts; Z78.0 Asymptomatic menopausal state; Z80.3 Family history of malignant neoplasm of breast
CPT/HCPCS: 77080; 77066; G0279; 77062